=== PATIENT | female | born 1935 | race Caucasian/White ===

== ENCOUNTER 2018-08-31 00:12 | Inpatient (IN) | payer MEDICARE, OTHER ==
[2018-08-31] MEDS ORDERED: NITROGLYCERIN (SL) 0.4 MG TAB (00:39)
[2018-08-31 00:41] LABS: ADD MAN DIFF? NO
[2018-08-31] MEDS: NITROGLYCERIN (SL) 0.4 MG TAB SL ×2 (00:43→09:55)
[2018-08-31 00:45] LABS: WHITE BLOOD COUNT 18.3 10^3/ul (4.8-10.8)
[2018-08-31 00:45] LABS: BASOPHIL # 0.1 10^3/ul (0.0-0.1); BASOPHILS % 0.5 % (0.0-2.0); EOSINOPHILS # 0.1 10^3/ul (0.0-0.5); EOSINOPHILS % 0.4 % (0.0-7.0); HEMATOCRIT 31.1 % (37.0-47.0); HEMOGLOBIN 9.3 g/dl (12.0-16.0); LYMPHOCYTES # 4.1 10^3/ul (0.8-2.9); LYMPHOCYTES % 22.6 % (15.0-51.0); MEAN CORPUSCULAR HEMOGLOBIN 30.2 pg (29.0-33.0); MEAN CORPUSCULAR HGB CONC 29.9 g/dl (32.0-37.0); MEAN PLATELET VOLUME 9.9 fl (7.4-10.4); MONOCYTE # 0.8 10^3/ul (0.3-0.9); MONOCYTES % 4.3 % (0.0-11.0); NEUTROPHIL # 13.1 10^3/ul (1.6-7.5); NEUTROPHILS % 71.5 % (39.0-77.0); PLATELET COUNT 348 10^3/UL (140-415); RED BLOOD COUNT 3.08 10^6/ul (4.20-5.40); RED CELL DISTRIBUTION WIDTH 17.1 % (11.5-14.5)
[2018-08-31] MEDS: CEFTRIAXONE 1 GM/50 ML (PMX) 50 ML IVPB (00:50)
[2018-08-31 01:04] LABS: INR 1.06; PROTIME 13.9 Sec (11.9-14.9); PT RATIO 1.1
[2018-08-31 01:05] LABS: PARTIAL THROMBOPLASTIN TIME 28.9 Sec (23.0-35.0)
[2018-08-31 01:16] LABS: ALANINE AMINOTRANSFERASE 18 IU/L (13-69); ALBUMIN 3.7 g/dl (3.3-4.9); ALBUMIN/GLOBULIN RATIO 1.48; ALKALINE PHOSPHATASE 68 IU/L (42-121); ANION GAP 14 (5-13); ASPARTATE AMINO TRANSFERASE 47 IU/L (15-46); BILIRUBIN,INDIRECT 0.1 mg/dl (0-1.1); BILIRUBIN,TOTAL 0.1 mg/dl (0.2-1.3); BLOOD UREA NITROGEN 45 mg/dl (7-20); CALCIUM 8.9 mg/dl (8.4-10.2); CARBON DIOXIDE 23 mmol/L (21-31); CHLORIDE 107 mmol/L (97-110); CREATININE 1.87 mg/dl (0.44-1.00); GLUCOSE 259 mg/dl (70-220); POTASSIUM 4.4 mmol/L (3.5-5.1); SODIUM 144 mmol/L (135-144); TOTAL PROTEIN 6.2 g/dl (6.1-8.1)
[2018-08-31 01:21] LABS: AADO2 Arterial 553.8 mmHg (7.0-24.0); Allen Test ACCEPTAB; Arterial Base Excess -3.5 mmol/L (-3.0-3); Arterial Blood Gas Oxygen Sat 96.6 mmHG (95.0-100.0); Arterial COHb 0.3 % (0.0-3.0); Arterial HCO3 23.7 mmol/L (22.0-26.0); Arterial MetHb 0.3 % (0.0-1.5); Arterial pCO2 52.6 mmhg (35-45); Blood Gas IEPAP 20/8; MODE MASK - BIPAP; Site Right Radial
[2018-08-31] MEDS: AZITHROMYCIN 500MG/NS (PMX) 250 ML IV (01:57)
[2018-08-31 03:21] LABS: B-TYPE NATRIURETIC PEPTIDE 8910 PG/ML (0-450); TROPONIN-I 0.743 ng/ml (0.000-0.120)
[2018-08-31] MEDS ORDERED: ONDANSETRON 4 MG INJ IV (03:30)
[2018-08-31] MEDS ORDERED: ACETAMINOPHEN 325 MG TAB PO (03:30)
[2018-08-31] MEDS: ASPIRIN 81 MG TAB PO ×2 (03:42→09:00)
[2018-08-31] MEDS ORDERED: NACL 0.9% 3 ML SYG IV (04:30)
[2018-08-31] MEDS ORDERED: GLUCAGON 1 MG INJ IM (05:00)
[2018-08-31] MEDS ORDERED: DEXTROSE 50% 50 ML SYRINGE IV ×2 (05:00)
[2018-08-31] MEDS ORDERED: GLUCOSE GEL 15 GRAM TUBE PO ×2 (05:00)
[2018-08-31] MEDS ORDERED: GLUCOSE GEL 15 GRAM TUBE BUCCAL (05:00)
[2018-08-31 05:22] LABS: LACTIC ACID 1.2 mmol/L (0.5-2.0)
[2018-08-31 05:25] LABS: CREATINE KINASE 187 IU/L (23-200)
[2018-08-31] MEDS: FUROSEMIDE 20 MG INJ IV (06:22)
[2018-08-31] MEDS: ENOXAPARIN 80 MG/0.8 ML SYG SC (06:33)
[2018-08-31] MEDS: INSULIN ASPART [NOVOLOG] 3 ML PEN SC ×5 (06:34→20:59)
[2018-08-31 08:51] LABS: AADO2 Arterial 207.4 mmHg (7.0-24.0); Allen Test ACCEPTAB; Arterial Base Excess 0.3 mmol/L (-3.0-3); Arterial Blood Gas Oxygen Sat 97.3 mmHG (95.0-100.0); Arterial COHb 0.3 % (0.0-3.0); Arterial Fraction of Oxyhgb 96.8 % (93.0-99.0); Arterial HCO3 24.8 mmol/L (22.0-26.0); Arterial MetHb 0.2 % (0.0-1.5); Arterial pCO2 39.4 mmhg (35-45); Blood Gas IEPAP 20/8; Blood Gas PS 12; MODE MASK - BIPAP; Site Right Radial
[2018-08-31] MEDS: FUROSEMIDE 40 MG INJ IV ×2 (10:07→13:24)
[2018-08-31] MEDS ORDERED: NITROGLYCERIN (IC) 100 MCG/ML INJ (10:32)
[2018-08-31] MEDS ORDERED: VERAPAMIL 5 MG INJ (10:32)
[2018-08-31] MEDS ORDERED: MIDAZOLAM 1 MG/ML 2 ML INJ (10:32)
[2018-08-31] MEDS ORDERED: FENTAnyl 50 MCG/ML VIAL (10:32)
[2018-08-31] MEDS ORDERED: IOHEXOL 350MG/ML 50 ML BTL (10:33)
[2018-08-31] MEDS ORDERED: IODIXANOL LOCM 100 ML BTL (10:33)
[2018-08-31 10:39] LABS: CREATINE KINASE 290 IU/L (23-200)
[2018-08-31 10:52] LABS: CK INDEX 6.2
[2018-08-31] MEDS: HOLD all METFORMIN and METFORMIN CONTAINING medications for 48 hours post procedure. Chec XX (12:00)
[2018-08-31 12:07] LABS: ANION GAP 15 (5-13); BLOOD UREA NITROGEN 47 mg/dl (7-20); CALCIUM 9.1 mg/dl (8.4-10.2); CARBON DIOXIDE 22 mmol/L (21-31); CHLORIDE 109 mmol/L (97-110); CREATININE 1.82 mg/dl (0.44-1.00); GLUCOSE 170 mg/dl (70-220); POTASSIUM 4.3 mmol/L (3.5-5.1); SODIUM 146 mmol/L (135-144)
[2018-08-31 12:16] LABS: B-TYPE NATRIURETIC PEPTIDE 26300 PG/ML (0-450)
[2018-08-31] MEDS: NITROGLYCERIN 50 MG/D5W (PMX) 250 ML IV (12:35)
[2018-08-31] MEDS ORDERED: HEPARIN 25000 UNITS/250 ML 250 ML (13:18)
[2018-08-31] MEDS: ATORVASTATIN 80 MG TAB PO (13:24)
[2018-08-31] MEDS: HEPARIN 25000 UNITS/D5W 250 ML IV (14:12)
[2018-08-31] MEDS: HEPARIN 1000 UNITS/ML 10 ML INJ IV (14:13)
[2018-08-31 16:09] LABS: ADD UMIC YES; UR ASCORBIC ACID NEGATIVE (NEGATIVE); UR BILIRUBIN (Dip) NEGATIVE (NEGATIVE); UR BLOOD (Dip) 3+ mg/dL (NEGATIVE); UR CLARITY CLEAR (CLEAR); UR COLOR COLORLESS (YELLOW); UR GLUCOSE (Dip) NEGATIVE (NEGATIVE); UR KETONES (Dip) NEGATIVE (NEGATIVE); UR LEUKOCYTE ESTERASE (Dip) NEGATIVE Leu/ul (NEGATIVE); UR NITRITE (Dip) NEGATIVE (NEGATIVE); UR RBC 123 /HPF (0-5); UR SPECIFIC GRAVITY (Dip) 1.016 (1.003-1.030); UR TOTAL PROTEIN (Dip) NEGATIVE (NEGATIVE); UR UROBILINOGEN (Dip) NEGATIVE (NEGATIVE); UR WBC 4 /HPF (0-5)
[2018-08-31] MEDS ORDERED: ATROPINE 1 MG/10 ML SYRINGE (16:15)
[2018-08-31 16:36] LABS: AMPHETAMINE/METHAMPHETAMINE Negative (NEGATIVE); BARBITURATES Negative (NEGATIVE); BENZODIAZEPINES Positive (NEGATIVE); CANNABINOIDS Negative (NEGATIVE); COCAINE Negative (NEGATIVE); OPIATES Negative (NEGATIVE)
[2018-08-31] MEDS: PIPER-TAZO 2.25 GM (PMX) 50 ML IVPB ×2 (17:20→23:59)
[2018-08-31] MEDS: CEPASTAT LOZENGE MT (17:36)
[2018-08-31 19:49] LABS: PARTIAL THROMBOPLASTIN TIME > 180.0 Sec (23.0-35.0)
[2018-08-31 22:29] LABS: Allen Test ACCEPTAB; Arterial Base Excess 0 mmol/L (-3.0-3); Arterial Blood Gas Oxygen Sat 95.4 mmHG (95.0-100.0); Arterial COHb 0.3 % (0.0-3.0); Arterial Fraction of Oxyhgb 94.8 % (93.0-99.0); Arterial HCO3 23.8 mmol/L (22.0-26.0); Arterial MetHb 0.3 % (0.0-1.5); Arterial pCO2 35.2 mmhg (35-45); Blood Gas IEPAP 20/8; Blood Gas PS 12; MODE MASK - BIPAP; Site Left Radial
[2018-08-31 22:48] LABS: PARTIAL THROMBOPLASTIN TIME 68.1 Sec (23.0-35.0)
[2018-09-01] MEDS: INSULIN ASPART [NOVOLOG] 3 ML PEN SC ×6 (01:00→21:10)
[2018-09-01] MEDS: ACCU-CHEK XX (02:00)
[2018-09-01] MEDS ORDERED: VANCOMYCIN IV PER PHARMACY XX (05:30)
[2018-09-01 05:56] LABS: ADD MAN DIFF? NO
[2018-09-01] MEDS: PANTOPRAZOLE 40 MG INJ IV (06:04)
[2018-09-01] MEDS: PIPER-TAZO 2.25 GM (PMX) 50 ML IVPB ×3 (06:04→17:37)
[2018-09-01] MEDS: ONDANSETRON 4 MG INJ IV ×2 (06:26→12:30)
[2018-09-01 06:29] LABS: ALANINE AMINOTRANSFERASE 25 IU/L (13-69); ALBUMIN 3.3 g/dl (3.3-4.9); ALBUMIN/GLOBULIN RATIO 1.37; ALKALINE PHOSPHATASE 52 IU/L (42-121); ANION GAP 13 (5-13); ASPARTATE AMINO TRANSFERASE 57 IU/L (15-46); BILIRUBIN,INDIRECT 0.3 mg/dl (0-1.1); BILIRUBIN,TOTAL 0.3 mg/dl (0.2-1.3); BLOOD UREA NITROGEN 44 mg/dl (7-20); CARBON DIOXIDE 26 mmol/L (21-31); CHLORIDE 107 mmol/L (97-110); CHOL/HDL RATIO 2.5 RATIO; CHOLESTEROL 109 mg/dl (100-200); CREATININE 1.84 mg/dl (0.44-1.00); GLUCOSE 122 mg/dl (70-220); HDL CHOLESTEROL 42 mg/dl (33-92); LDL CHOLESTEROL,CALCULATED 38 mg/dl; MAGNESIUM 2.3 mg/dl (1.7-2.5); POTASSIUM 3.2 mmol/L (3.5-5.1); SODIUM 146 mmol/L (135-144); TOTAL PROTEIN 5.7 g/dl (6.1-8.1); TRIGLYCERIDES 145 mg/dl (0-149)
[2018-09-01 06:32] LABS: WHITE BLOOD COUNT 12.4 10^3/ul (4.8-10.8)
[2018-09-01 06:32] LABS: BASOPHILS % 0.2 % (0.0-2.0); HEMATOCRIT 28.1 % (37.0-47.0); HEMOGLOBIN 8.8 g/dl (12.0-16.0); LYMPHOCYTES # 1.3 10^3/ul (0.8-2.9); LYMPHOCYTES % 10.6 % (15.0-51.0); MEAN CORPUSCULAR HEMOGLOBIN 29.9 pg (29.0-33.0); MEAN CORPUSCULAR HGB CONC 31.3 g/dl (32.0-37.0); MEAN CORPUSCULAR VOLUME 95.6 fl (82.0-101.0); MONOCYTE # 0.4 10^3/ul (0.3-0.9); MONOCYTES % 3.3 % (0.0-11.0); NEUTROPHIL # 10.6 10^3/ul (1.6-7.5); NEUTROPHILS % 85.3 % (39.0-77.0); PLATELET COUNT 267 10^3/UL (140-415); RED BLOOD COUNT 2.94 10^6/ul (4.20-5.40); RED CELL DISTRIBUTION WIDTH 17.2 % (11.5-14.5)
[2018-09-01] MEDS: VANCOMYCIN HCL 1.5 GM in SOD CHLORIDE 0.9% 250 ML IVPB (06:37)
[2018-09-01 06:41] LABS: PARTIAL THROMBOPLASTIN TIME 69.6 Sec (23.0-35.0)
[2018-09-01 07:50] LABS: HEMOGLOBIN A1C 5.7 % (0-5.9)
[2018-09-01] MEDS: ASPIRIN 81 MG TAB PO (08:33)
[2018-09-01] MEDS: CEPASTAT LOZENGE MT ×2 (08:36→21:27)
[2018-09-01] MEDS: FUROSEMIDE 40 MG INJ IV (08:36)
[2018-09-01] MEDS: POTASSIUM CHLORIDE (SR) 20 MEQ TAB PO ×2 (09:33→21:08)
[2018-09-01] MEDS: ESCITALOPRAM 10 MG TAB PO (10:33)
[2018-09-01] MEDS: HOLD all METFORMIN and METFORMIN CONTAINING medications for 48 hours post procedure. Chec XX (12:00)
[2018-09-01 13:52] LABS: PARTIAL THROMBOPLASTIN TIME 48.7 Sec (23.0-35.0)
[2018-09-01] MEDS: HEPARIN 25000 UNITS/D5W 250 ML IV (14:08)
[2018-09-01] MEDS: DOCUSATE SODIUM 100 MG CAP PO ×2 (18:54→21:08)
[2018-09-01 19:41] LABS: PARTIAL THROMBOPLASTIN TIME 50.2 Sec (23.0-35.0)
[2018-09-01] MEDS: ATORVASTATIN 80 MG TAB PO (21:07)
[2018-09-01] MEDS: MIRTAZAPINE 15 MG TAB PO (21:08)
[2018-09-02] MEDS: PIPER-TAZO 2.25 GM (PMX) 50 ML IVPB ×5 (00:07→23:28)
[2018-09-02] MEDS: INSULIN ASPART [NOVOLOG] 3 ML PEN SC ×6 (01:00→21:00)
[2018-09-02] MEDS: ACCU-CHEK XX (01:19)
[2018-09-02 03:47] LABS: ADD MAN DIFF? NO
[2018-09-02 04:08] LABS: MAGNESIUM 2.4 mg/dl (1.7-2.5)
[2018-09-02 04:08] LABS: PHOSPHORUS 4.4 mg/dl (2.5-4.9)
[2018-09-02 04:09] LABS: WHITE BLOOD COUNT 10.2 10^3/ul (4.8-10.8)
[2018-09-02 04:09] LABS: ANION GAP 8 (5-13); BASOPHILS % 0.3 % (0.0-2.0); BLOOD UREA NITROGEN 48 mg/dl (7-20); CALCIUM 8.6 mg/dl (8.4-10.2); CARBON DIOXIDE 28 mmol/L (21-31); CHLORIDE 108 mmol/L (97-110); EOSINOPHILS % 0.2 % (0.0-7.0); GLUCOSE 116 mg/dl (70-220); HEMATOCRIT 26.3 % (37.0-47.0); LYMPHOCYTES # 1.4 10^3/ul (0.8-2.9); LYMPHOCYTES % 13.3 % (15.0-51.0); MEAN CORPUSCULAR HGB CONC 30.4 g/dl (32.0-37.0); MEAN CORPUSCULAR VOLUME 98.5 fl (82.0-101.0); MEAN PLATELET VOLUME 10.1 fl (7.4-10.4); MONOCYTE # 0.4 10^3/ul (0.3-0.9); MONOCYTES % 4.1 % (0.0-11.0); NEUTROPHIL # 8.4 10^3/ul (1.6-7.5); NEUTROPHILS % 81.6 % (39.0-77.0); PLATELET COUNT 248 10^3/UL (140-415); RED BLOOD COUNT 2.67 10^6/ul (4.20-5.40); RED CELL DISTRIBUTION WIDTH 16.9 % (11.5-14.5); SODIUM 144 mmol/L (135-144)
[2018-09-02 04:20] LABS: PARTIAL THROMBOPLASTIN TIME 45.7 Sec (23.0-35.0)
[2018-09-02] MEDS: HEPARIN 1000 UNITS/ML 10 ML INJ IV (04:36)
[2018-09-02] MEDS: HEPARIN 25000 UNITS/D5W 250 ML IV (04:45)
[2018-09-02] MEDS: PANTOPRAZOLE (EC) 40 MG TAB PO (05:48)
[2018-09-02] MEDS: RISEDRONATE 35 MG TAB PO ×2 (07:00→07:05)
[2018-09-02] MEDS: DOCUSATE SODIUM 100 MG CAP PO ×2 (07:45→21:06)
[2018-09-02] MEDS: ASPIRIN 81 MG TAB PO (07:45)
[2018-09-02] MEDS: ESCITALOPRAM 10 MG TAB PO (07:45)
[2018-09-02] MEDS: FUROSEMIDE 40 MG INJ IV (08:36)
[2018-09-02 11:54] LABS: PARTIAL THROMBOPLASTIN TIME 33.8 Sec (23.0-35.0)
[2018-09-02] MEDS ORDERED: LIDOCAINE 100 MG SYRINGE (13:57)
[2018-09-02] MEDS ORDERED: PHENYLephrine (100 MCG/ML) 10ML SYG (13:57)
[2018-09-02] MEDS ORDERED: EPHEDrine 25 MG/5 ML SYG (13:57)
[2018-09-02] MEDS ORDERED: PROPOFOL 0 ML (13:57)
[2018-09-02] MEDS ORDERED: PROPOFOL 20 ML (14:58)
[2018-09-02] MEDS: CEPASTAT LOZENGE MT ×2 (16:10→19:50)
[2018-09-02] MEDS: VANCOMYCIN 1 GM 250 ML IVPB (17:46)
[2018-09-02] MEDS: ATORVASTATIN 80 MG TAB PO (21:00)
[2018-09-02] MEDS: MIRTAZAPINE 15 MG TAB PO (21:01)
[2018-09-03] MEDS: INSULIN ASPART [NOVOLOG] 3 ML PEN SC ×6 (01:00→20:51)
[2018-09-03] MEDS: ACCU-CHEK XX (01:01)
[2018-09-03] MEDS: PIPER-TAZO 2.25 GM (PMX) 50 ML IVPB ×3 (05:50→18:47)
[2018-09-03] MEDS: PANTOPRAZOLE (EC) 40 MG TAB PO (05:51)
[2018-09-03 08:12] LABS: CREATININE 1.89 mg/dl (0.44-1.00)
[2018-09-03 08:12] LABS: BLOOD UREA NITROGEN 53 mg/dl (7-20)
[2018-09-03] MEDS: DOCUSATE SODIUM 100 MG CAP PO ×2 (08:34→20:34)
[2018-09-03] MEDS: ASPIRIN 81 MG TAB PO (08:34)
[2018-09-03] MEDS: ESCITALOPRAM 10 MG TAB PO (08:34)
[2018-09-03] MEDS: NITROGLYCERIN (SL) 0.4 MG TAB SL ×3 (16:52→22:02)
[2018-09-03] MEDS: LEVALBUTEROL (NEB) 1.25 MG/0.5 ML AMP HHN (20:00)
[2018-09-03] MEDS: IPRATROPIUM (NEB) 0.5 MG/2.5 ML AMP HHN (20:00)
[2018-09-03 20:12] LABS: AADO2 Arterial 108.7 mmHg (7.0-24.0); Allen Test ACCEPTAB; Arterial Base Excess -1.4 mmol/L (-3.0-3); Arterial Blood Gas Oxygen Sat 93.1 mmHG (95.0-100.0); Arterial COHb 0.3 % (0.0-3.0); Arterial Fraction of Oxyhgb 92.7 % (93.0-99.0); Arterial HCO3 24.1 mmol/L (22.0-26.0); Arterial MetHb 0.1 % (0.0-1.5); Arterial pCO2 43.4 mmhg (35-45); MODE NASAL CANNULA; Site Right Radial
[2018-09-03] MEDS: ATORVASTATIN 80 MG TAB PO (20:33)
[2018-09-03] MEDS: FUROSEMIDE 40 MG INJ IV (20:33)
[2018-09-03] MEDS: MIRTAZAPINE 15 MG TAB PO (20:33)
[2018-09-03] MEDS: morphine 2 MG INJ IV (22:03)
[2018-09-04] MEDS: PIPER-TAZO 2.25 GM (PMX) 50 ML IVPB ×4 (00:19→18:07)
[2018-09-04] MEDS: NITROGLYCERIN 50 MG/D5W (PMX) 250 ML IV (00:19)
[2018-09-04] MEDS: INSULIN ASPART [NOVOLOG] 3 ML PEN SC ×6 (01:00→21:00)
[2018-09-04] MEDS: ACCU-CHEK XX (02:00)
[2018-09-04 05:23] LABS: ADD MAN DIFF? NO
[2018-09-04 05:32] LABS: WHITE BLOOD COUNT 9.1 10^3/ul (4.8-10.8)
[2018-09-04 05:32] LABS: BASOPHILS % 0.2 % (0.0-2.0); EOSINOPHILS % 0.1 % (0.0-7.0); HEMATOCRIT 26.2 % (37.0-47.0); LYMPHOCYTES % 11.4 % (15.0-51.0); MEAN CORPUSCULAR HEMOGLOBIN 30.3 pg (29.0-33.0); MEAN CORPUSCULAR HGB CONC 30.5 g/dl (32.0-37.0); MEAN CORPUSCULAR VOLUME 99.2 fl (82.0-101.0); MONOCYTE # 0.4 10^3/ul (0.3-0.9); MONOCYTES % 4.3 % (0.0-11.0); NEUTROPHIL # 7.6 10^3/ul (1.6-7.5); NEUTROPHILS % 83.6 % (39.0-77.0); PLATELET COUNT 260 10^3/UL (140-415); RED BLOOD COUNT 2.64 10^6/ul (4.20-5.40); RED CELL DISTRIBUTION WIDTH 16.5 % (11.5-14.5)
[2018-09-04 05:51] LABS: ALANINE AMINOTRANSFERASE 26 IU/L (13-69); ALBUMIN/GLOBULIN RATIO 1.15; ALKALINE PHOSPHATASE 74 IU/L (42-121); ANION GAP 7 (5-13); ASPARTATE AMINO TRANSFERASE 56 IU/L (15-46); BILIRUBIN,INDIRECT 0.2 mg/dl (0-1.1); BILIRUBIN,TOTAL 0.2 mg/dl (0.2-1.3); BLOOD UREA NITROGEN 55 mg/dl (7-20); CALCIUM 8.7 mg/dl (8.4-10.2); CARBON DIOXIDE 27 mmol/L (21-31); CHLORIDE 113 mmol/L (97-110); CREATININE 2.28 mg/dl (0.44-1.00); GLUCOSE 117 mg/dl (70-220); POTASSIUM 4.1 mmol/L (3.5-5.1); SODIUM 147 mmol/L (135-144); TOTAL PROTEIN 5.6 g/dl (6.1-8.1)
[2018-09-04] MEDS: PANTOPRAZOLE (EC) 40 MG TAB PO (05:54)
[2018-09-04 06:01] LABS: VANCOMYCIN,TROUGH 16.2 ug/ml (10.0-20.0)
[2018-09-04] MEDS: VANCOMYCIN 1 GM 250 ML IVPB (06:38)
[2018-09-04] MEDS: FUROSEMIDE 40 MG INJ IV ×2 (09:04→18:07)
[2018-09-04] MEDS: ESCITALOPRAM 10 MG TAB PO (09:04)
[2018-09-04] MEDS: ASPIRIN 81 MG TAB PO (09:04)
[2018-09-04] MEDS: DOCUSATE SODIUM 100 MG CAP PO ×2 (09:05→21:33)
[2018-09-04] MEDS: NITROGLYCERIN (SL) 0.4 MG TAB SL ×2 (20:30→20:40)
[2018-09-04] MEDS: ATORVASTATIN 80 MG TAB PO (21:33)
[2018-09-04] MEDS: MIRTAZAPINE 15 MG TAB PO (21:33)
[2018-09-05] MEDS: PIPER-TAZO 2.25 GM (PMX) 50 ML IVPB ×4 (00:27→17:07)
[2018-09-05] MEDS: INSULIN ASPART [NOVOLOG] 3 ML PEN SC ×6 (00:28→21:00)
[2018-09-05] MEDS: ACCU-CHEK XX (02:00)
[2018-09-05] MEDS: FUROSEMIDE 40 MG INJ IV (05:19)
[2018-09-05] MEDS: PANTOPRAZOLE (EC) 40 MG TAB PO (05:19)
[2018-09-05] MEDS: ASPIRIN 81 MG TAB PO (08:31)
[2018-09-05] MEDS: ESCITALOPRAM 10 MG TAB PO (08:31)
[2018-09-05] MEDS: DOCUSATE SODIUM 100 MG CAP PO ×2 (08:31→21:24)
[2018-09-05 08:59] LABS: ANION GAP 10 (5-13); BLOOD UREA NITROGEN 61 mg/dl (7-20); CALCIUM 8.6 mg/dl (8.4-10.2); CARBON DIOXIDE 27 mmol/L (21-31); CHLORIDE 109 mmol/L (97-110); CREATININE 2.48 mg/dl (0.44-1.00); GLUCOSE 96 mg/dl (70-220); SODIUM 146 mmol/L (135-144)
[2018-09-05] MEDS: CLOPIDOGREL 75 MG TAB PO (09:16)
[2018-09-05] MEDS: ISOSORBIDE MONONITRATE(SR)30 MG TAB PO (09:17)
[2018-09-05] MEDS: MIRTAZAPINE 15 MG TAB PO (21:24)
[2018-09-05] MEDS: ATORVASTATIN 80 MG TAB PO (21:24)
[2018-09-06] MEDS: PIPER-TAZO 2.25 GM (PMX) 50 ML IVPB ×4 (00:26→21:20)
[2018-09-06] MEDS: ACCU-CHEK XX (02:00)
[2018-09-06 05:10] LABS: ADD MAN DIFF? NO
[2018-09-06 05:13] LABS: BASOPHIL # 0.1 10^3/ul (0.0-0.1); BASOPHILS % 0.5 % (0.0-2.0); EOSINOPHILS # 0.3 10^3/ul (0.0-0.5); HEMATOCRIT 25.6 % (37.0-47.0); HEMOGLOBIN 7.9 g/dl (12.0-16.0); LYMPHOCYTES # 1.4 10^3/ul (0.8-2.9); LYMPHOCYTES % 14.1 % (15.0-51.0); MEAN CORPUSCULAR HEMOGLOBIN 29.4 pg (29.0-33.0); MEAN CORPUSCULAR HGB CONC 30.9 g/dl (32.0-37.0); MEAN CORPUSCULAR VOLUME 95.2 fl (82.0-101.0); MEAN PLATELET VOLUME 10.1 fl (7.4-10.4); MONOCYTE # 0.6 10^3/ul (0.3-0.9); MONOCYTES % 6.1 % (0.0-11.0); NEUTROPHIL # 7.3 10^3/ul (1.6-7.5); NEUTROPHILS % 75.7 % (39.0-77.0); PLATELET COUNT 294 10^3/UL (140-415); RED BLOOD COUNT 2.69 10^6/ul (4.20-5.40); RED CELL DISTRIBUTION WIDTH 16.3 % (11.5-14.5)
[2018-09-06 05:13] LABS: WHITE BLOOD COUNT 9.7 10^3/ul (4.8-10.8)
[2018-09-06] MEDS: PANTOPRAZOLE (EC) 40 MG TAB PO (05:30)
[2018-09-06 05:37] LABS: ANION GAP 8 (5-13); BLOOD UREA NITROGEN 60 mg/dl (7-20); CALCIUM 8.7 mg/dl (8.4-10.2); CARBON DIOXIDE 27 mmol/L (21-31); CHLORIDE 109 mmol/L (97-110); CREATININE 2.31 mg/dl (0.44-1.00); GLUCOSE 103 mg/dl (70-220); MAGNESIUM 2.6 mg/dl (1.7-2.5); PHOSPHORUS 3.6 mg/dl (2.5-4.9); POTASSIUM 3.6 mmol/L (3.5-5.1); SODIUM 144 mmol/L (135-144)
[2018-09-06] MEDS: VANCOMYCIN 1 GM 250 ML IVPB (06:05)
[2018-09-06] MEDS: INSULIN ASPART [NOVOLOG] 3 ML PEN SC ×4 (07:35→21:00)
[2018-09-06] MEDS: NITROGLYCERIN (SL) 0.4 MG TAB SL (08:02)
[2018-09-06] MEDS: ONDANSETRON 4 MG INJ IV (08:02)
[2018-09-06] MEDS: ASPIRIN 81 MG TAB PO (08:12)
[2018-09-06] MEDS: ISOSORBIDE MONONITRATE(SR)30 MG TAB PO (08:13)
[2018-09-06] MEDS: DOCUSATE SODIUM 100 MG CAP PO ×2 (08:13→21:20)
[2018-09-06] MEDS: ESCITALOPRAM 10 MG TAB PO (08:13)
[2018-09-06] MEDS: FUROSEMIDE 40 MG INJ IV (08:18)
[2018-09-06] MEDS: CLOPIDOGREL 75 MG TAB PO (08:18)
[2018-09-06] MEDS: CEPASTAT LOZENGE MT (13:05)
[2018-09-06] MEDS: RANOLAZINE (SR) 500 MG TAB PO ×2 (16:13→21:20)
[2018-09-06] MEDS: MIRTAZAPINE 15 MG TAB PO (21:20)
[2018-09-06] MEDS: ATORVASTATIN 80 MG TAB PO (21:20)
[2018-09-07] MEDS: ACCU-CHEK XX (02:00)
[2018-09-07] MEDS: NITROGLYCERIN 50 MG/D5W (PMX) 250 ML IV (03:42)
[2018-09-07 05:02] LABS: ADD MAN DIFF? NO
[2018-09-07 05:13] LABS: WHITE BLOOD COUNT 14.3 10^3/ul (4.8-10.8)
[2018-09-07 05:13] LABS: BASOPHIL # 0.1 10^3/ul (0.0-0.1); BASOPHILS % 0.4 % (0.0-2.0); EOSINOPHILS # 0.3 10^3/ul (0.0-0.5); EOSINOPHILS % 2.2 % (0.0-7.0); HEMOGLOBIN 8.8 g/dl (12.0-16.0); LYMPHOCYTES # 1.5 10^3/ul (0.8-2.9); LYMPHOCYTES % 10.6 % (15.0-51.0); MEAN CORPUSCULAR HEMOGLOBIN 29.3 pg (29.0-33.0); MEAN CORPUSCULAR HGB CONC 30.3 g/dl (32.0-37.0); MEAN CORPUSCULAR VOLUME 96.7 fl (82.0-101.0); MEAN PLATELET VOLUME 9.9 fl (7.4-10.4); MONOCYTE # 0.5 10^3/ul (0.3-0.9); MONOCYTES % 3.7 % (0.0-11.0); NEUTROPHIL # 11.8 10^3/ul (1.6-7.5); NEUTROPHILS % 82.5 % (39.0-77.0); PLATELET COUNT 337 10^3/UL (140-415); RED CELL DISTRIBUTION WIDTH 16.6 % (11.5-14.5)
[2018-09-07] MEDS: morphine 2 MG INJ IV (05:18)
[2018-09-07 05:19] LABS: AADO2 Arterial 76.9 mmHg (7.0-24.0); Arterial Base Excess 0.6 mmol/L (-3.0-3); Arterial Blood Gas Oxygen Sat 94.8 mmHG (95.0-100.0); Arterial COHb 0.3 % (0.0-3.0); Arterial Fraction of Oxyhgb 94.4 % (93.0-99.0); Arterial HCO3 25.8 mmol/L (22.0-26.0); Arterial MetHb 0.1 % (0.0-1.5); Arterial pCO2 43.9 mmhg (35-45); MODE NASAL CANNULA; Site Right Radial
[2018-09-07] MEDS: PIPER-TAZO 2.25 GM (PMX) 50 ML IVPB ×3 (05:27→21:40)
[2018-09-07] MEDS: PANTOPRAZOLE (EC) 40 MG TAB PO (05:27)
[2018-09-07 05:28] LABS: ANION GAP 9 (5-13); BLOOD UREA NITROGEN 56 mg/dl (7-20); CALCIUM 8.7 mg/dl (8.4-10.2); CARBON DIOXIDE 26 mmol/L (21-31); CHLORIDE 110 mmol/L (97-110); CREATININE 2.01 mg/dl (0.44-1.00); GLUCOSE 123 mg/dl (70-220); POTASSIUM 4.2 mmol/L (3.5-5.1); SODIUM 145 mmol/L (135-144)
[2018-09-07 05:34] LABS: MAGNESIUM 2.7 mg/dl (1.7-2.5)
[2018-09-07 05:34] LABS: PHOSPHORUS 4.5 mg/dl (2.5-4.9)
[2018-09-07 07:33] LABS: CREATINE KINASE 33 IU/L (23-200)
[2018-09-07] MEDS: INSULIN ASPART [NOVOLOG] 3 ML PEN SC ×4 (07:35→20:21)
[2018-09-07 07:43] LABS: CK INDEX 1.7; CK-MB 0.55 ng/ml (0.0-2.4)
[2018-09-07] MEDS: FUROSEMIDE 40 MG INJ IV (08:54)
[2018-09-07] MEDS: ASPIRIN 81 MG TAB PO (08:54)
[2018-09-07] MEDS: ONDANSETRON 4 MG INJ IV (08:54)
[2018-09-07] MEDS: RANOLAZINE (SR) 500 MG TAB PO ×2 (09:00→20:21)
[2018-09-07] MEDS: ESCITALOPRAM 10 MG TAB PO (09:00)
[2018-09-07] MEDS: DOCUSATE SODIUM 100 MG CAP PO ×2 (09:00→20:21)
[2018-09-07] MEDS: ISOSORBIDE MONONITRATE(SR)30 MG TAB PO (09:00)
[2018-09-07] MEDS: CLOPIDOGREL 75 MG TAB PO (09:00)
[2018-09-07] MEDS ORDERED: HEPARIN 25000 UNITS/250 ML 250 ML (09:16)
[2018-09-07 09:30] LABS: ADD MAN DIFF? NO
[2018-09-07] MEDS ORDERED: HEPARIN 1000 UNITS/ML 10 ML INJ IV (09:30)
[2018-09-07 09:31] LABS: WHITE BLOOD COUNT 15.1 10^3/ul (4.8-10.8)
[2018-09-07 09:31] LABS: BASOPHIL # 0.1 10^3/ul (0.0-0.1); BASOPHILS % 0.4 % (0.0-2.0); EOSINOPHILS # 0.1 10^3/ul (0.0-0.5); EOSINOPHILS % 0.6 % (0.0-7.0); HEMATOCRIT 28.5 % (37.0-47.0); HEMOGLOBIN 8.7 g/dl (12.0-16.0); LYMPHOCYTES # 1.4 10^3/ul (0.8-2.9); LYMPHOCYTES % 9.5 % (15.0-51.0); MEAN CORPUSCULAR HEMOGLOBIN 30.2 pg (29.0-33.0); MEAN CORPUSCULAR HGB CONC 30.5 g/dl (32.0-37.0); MEAN PLATELET VOLUME 9.8 fl (7.4-10.4); MONOCYTE # 0.4 10^3/ul (0.3-0.9); MONOCYTES % 2.9 % (0.0-11.0); PLATELET COUNT 314 10^3/UL (140-415); RED BLOOD COUNT 2.88 10^6/ul (4.20-5.40); RED CELL DISTRIBUTION WIDTH 16.3 % (11.5-14.5)
[2018-09-07] MEDS: HEPARIN 1000 UNITS/ML 10 ML INJ IV (09:34)
[2018-09-07] MEDS: HEPARIN 25000 UNITS/250 ML 250 ML IV (09:37)
[2018-09-07 09:52] LABS: INR 1.18; PROTIME 15.1 Sec (11.9-14.9); PT RATIO 1.2
[2018-09-07 09:53] LABS: PARTIAL THROMBOPLASTIN TIME 33.2 Sec (23.0-35.0)
[2018-09-07] MEDS ORDERED: LIDOCAINE 1% (MDV) 20 ML INJ (13:41)
[2018-09-07] MEDS ORDERED: VERAPAMIL 5 MG INJ (13:41)
[2018-09-07] MEDS ORDERED: NITROGLYCERIN (IC) 100 MCG/ML INJ (13:41)
[2018-09-07] MEDS ORDERED: MIDAZOLAM 1 MG/ML 2 ML INJ (14:08)
[2018-09-07] MEDS ORDERED: BIVALIRUDIN 250MG /NS 50 ML 50 ML IVPB (14:24)
[2018-09-07] MEDS ORDERED: SOD CHLORIDE 0.9% 1,000 ML (14:27)
[2018-09-07] MEDS ORDERED: NORepinephrine 8MG/250 ML (PMX 250 ML (14:29)
[2018-09-07] MEDS ORDERED: CLOPIDOGREL 300 MG TAB (14:49)
[2018-09-07] MEDS ORDERED: FUROSEMIDE 40 MG INJ (14:51)
[2018-09-07] MEDS: SOD CHLORIDE 0.9% 1,000 ML IV (15:43)
[2018-09-07] MEDS ORDERED: ATROPINE 1 MG/10 ML SYRINGE (17:18)
[2018-09-07] MEDS: ATORVASTATIN 80 MG TAB PO (20:20)
[2018-09-07] MEDS: MIRTAZAPINE 15 MG TAB PO (20:20)
[2018-09-08] MEDS: morphine 2 MG INJ IV ×3 (01:10→19:53)
[2018-09-08] MEDS: ACCU-CHEK XX (01:27)
[2018-09-08] MEDS: PANTOPRAZOLE (EC) 40 MG TAB PO (05:20)
[2018-09-08] MEDS: PIPER-TAZO 2.25 GM (PMX) 50 ML IVPB ×3 (05:20→21:56)
[2018-09-08 05:42] LABS: AADO2 Arterial 215.4 mmHg (7.0-24.0); Allen Test ACCEPTAB; Arterial Base Excess -3.1 mmol/L (-3.0-3); Arterial Blood Gas Oxygen Sat 96.5 mmHG (95.0-100.0); Arterial COHb 0.3 % (0.0-3.0); Arterial Fraction of Oxyhgb 95.9 % (93.0-99.0); Arterial HCO3 21.6 mmol/L (22.0-26.0); Arterial MetHb 0.3 % (0.0-1.5); Arterial pCO2 37.4 mmhg (35-45); Blood Gas IEPAP 20/8; Blood Gas PS 12; MODE MASK - BIPAP; Site Right Radial
[2018-09-08 05:52] LABS: ADD MAN DIFF? NO
[2018-09-08 06:01] LABS: BASOPHIL # 0.1 10^3/ul (0.0-0.1); BASOPHILS % 0.5 % (0.0-2.0); EOSINOPHILS # 0.1 10^3/ul (0.0-0.5); EOSINOPHILS % 0.6 % (0.0-7.0); HEMATOCRIT 25.3 % (37.0-47.0); HEMOGLOBIN 7.8 g/dl (12.0-16.0); LYMPHOCYTES # 1.4 10^3/ul (0.8-2.9); MEAN CORPUSCULAR HEMOGLOBIN 30.2 pg (29.0-33.0); MEAN CORPUSCULAR HGB CONC 30.8 g/dl (32.0-37.0); MEAN CORPUSCULAR VOLUME 98.1 fl (82.0-101.0); MONOCYTE # 0.6 10^3/ul (0.3-0.9); MONOCYTES % 3.9 % (0.0-11.0); NEUTROPHILS % 84.4 % (39.0-77.0); PLATELET COUNT 320 10^3/UL (140-415); RED BLOOD COUNT 2.58 10^6/ul (4.20-5.40); RED CELL DISTRIBUTION WIDTH 16.6 % (11.5-14.5)
[2018-09-08 06:01] LABS: WHITE BLOOD COUNT 14.2 10^3/ul (4.8-10.8)
[2018-09-08] MEDS: VANCOMYCIN 1 GM 250 ML IVPB (06:05)
[2018-09-08 06:10] LABS: ALANINE AMINOTRANSFERASE 22 IU/L (13-69); ALBUMIN 3.1 g/dl (3.3-4.9); ALBUMIN/GLOBULIN RATIO 1.19; ALKALINE PHOSPHATASE 61 IU/L (42-121); ANION GAP 15 (5-13); ASPARTATE AMINO TRANSFERASE 25 IU/L (15-46); BILIRUBIN,INDIRECT 0.2 mg/dl (0-1.1); BILIRUBIN,TOTAL 0.2 mg/dl (0.2-1.3); BLOOD UREA NITROGEN 50 mg/dl (7-20); CALCIUM 8.2 mg/dl (8.4-10.2); CARBON DIOXIDE 21 mmol/L (21-31); CHLORIDE 110 mmol/L (97-110); CREATININE 1.93 mg/dl (0.44-1.00); GLUCOSE 92 mg/dl (70-220); POTASSIUM 3.8 mmol/L (3.5-5.1); SODIUM 146 mmol/L (135-144); TOTAL PROTEIN 5.7 g/dl (6.1-8.1)
[2018-09-08 06:14] LABS: VANCOMYCIN,TROUGH 15.8 ug/ml (10.0-20.0)
[2018-09-08 06:16] LABS: B-TYPE NATRIURETIC PEPTIDE 29400 PG/ML (0-450)
[2018-09-08 06:24] LABS: CREATINE KINASE 34 IU/L (23-200)
[2018-09-08 06:25] LABS: LACTIC ACID 0.9 mmol/L (0.5-2.0)
[2018-09-08 06:36] LABS: CK INDEX 5.1; CK-MB 1.72 ng/ml (0.0-2.4)
[2018-09-08] MEDS: NITROGLYCERIN (SL) 0.4 MG TAB SL ×2 (06:43→20:01)
[2018-09-08 06:49] LABS: MAGNESIUM 2.4 mg/dl (1.7-2.5)
[2018-09-08 06:49] LABS: PHOSPHORUS 4.7 mg/dl (2.5-4.9)
[2018-09-08] MEDS: INSULIN ASPART [NOVOLOG] 3 ML PEN SC ×4 (07:35→21:00)
[2018-09-08] MEDS: ISOSORBIDE MONONITRATE(SR)30 MG TAB PO (08:41)
[2018-09-08] MEDS: ASPIRIN 81 MG TAB PO (08:41)
[2018-09-08] MEDS: FUROSEMIDE 40 MG INJ IV ×2 (08:41→22:04)
[2018-09-08] MEDS: ESCITALOPRAM 10 MG TAB PO (08:42)
[2018-09-08] MEDS: RANOLAZINE (SR) 500 MG TAB PO ×2 (08:42→21:54)
[2018-09-08] MEDS: CLOPIDOGREL 75 MG TAB PO (08:42)
[2018-09-08] MEDS: DOCUSATE SODIUM 100 MG CAP PO ×2 (08:42→21:54)
[2018-09-08] MEDS: MIRTAZAPINE 15 MG TAB PO (21:53)
[2018-09-08] MEDS: ATORVASTATIN 80 MG TAB PO (21:53)
[2018-09-09] MEDS: ACCU-CHEK XX (01:30)
[2018-09-09] MEDS: NITROGLYCERIN (SL) 0.4 MG TAB SL ×2 (04:23→04:29)
[2018-09-09] MEDS: morphine 2 MG INJ IV (04:24)
[2018-09-09] MEDS: NITROGLYCERIN 50 MG/D5W (PMX) 250 ML IV ×2 (04:28→19:44)
[2018-09-09 04:39] LABS: ADD MAN DIFF? NO
[2018-09-09 04:43] LABS: WHITE BLOOD COUNT 19.2 10^3/ul (4.8-10.8)
[2018-09-09 04:43] LABS: BASOPHIL # 0.1 10^3/ul (0.0-0.1); BASOPHILS % 0.6 % (0.0-2.0); EOSINOPHILS # 0.3 10^3/ul (0.0-0.5); EOSINOPHILS % 1.4 % (0.0-7.0); HEMATOCRIT 25.8 % (37.0-47.0); HEMOGLOBIN 7.9 g/dl (12.0-16.0); LYMPHOCYTES # 1.9 10^3/ul (0.8-2.9); LYMPHOCYTES % 9.9 % (15.0-51.0); MEAN CORPUSCULAR HEMOGLOBIN 29.7 pg (29.0-33.0); MEAN CORPUSCULAR HGB CONC 30.6 g/dl (32.0-37.0); MEAN PLATELET VOLUME 10.3 fl (7.4-10.4); MONOCYTE # 0.6 10^3/ul (0.3-0.9); MONOCYTES % 3.3 % (0.0-11.0); NEUTROPHIL # 16.1 10^3/ul (1.6-7.5); NEUTROPHILS % 83.9 % (39.0-77.0); NUCLEATED RED BLOOD CELLS% 0.2 /100WBC (0.0-0.0); PLATELET COUNT 364 10^3/UL (140-415); RED BLOOD COUNT 2.66 10^6/ul (4.20-5.40); RED CELL DISTRIBUTION WIDTH 17.2 % (11.5-14.5)
[2018-09-09 04:56] LABS: RETICULOCYTE COUNT # 0.091 X10^6 (0.020-0.110); RETICULOCYTE COUNT % 3.5 % (0.5-1.5)
[2018-09-09 04:56] LABS: RETICULOCYTE RBC 2.61
[2018-09-09 05:00] LABS: IRON 39 ug/dl (35-150)
[2018-09-09] MEDS: LIDOCAINE 1% (MDV) 20 ML INJ SC (05:00)
[2018-09-09 05:03] LABS: MAGNESIUM 2.4 mg/dl (1.7-2.5)
[2018-09-09 05:09] LABS: % IRON SATURATION 14 % SAT (22-52); TOTAL IRON BINDING CAPACITY 270 ug/dl (241-421)
[2018-09-09 05:20] LABS: ANION GAP 15 (5-13); BLOOD UREA NITROGEN 48 mg/dl (7-20); CALCIUM 8.3 mg/dl (8.4-10.2); CARBON DIOXIDE 23 mmol/L (21-31); CHLORIDE 109 mmol/L (97-110); CREATININE 1.94 mg/dl (0.44-1.00); GLUCOSE 169 mg/dl (70-220); POTASSIUM 3.8 mmol/L (3.5-5.1); SODIUM 147 mmol/L (135-144)
[2018-09-09] MEDS: PIPER-TAZO 2.25 GM (PMX) 50 ML IVPB ×3 (05:33→22:48)
[2018-09-09] MEDS: PANTOPRAZOLE (EC) 40 MG TAB PO (05:34)
[2018-09-09 06:24] LABS: CK-MB 1.02 ng/ml (0.0-2.4)
[2018-09-09] MEDS: RISEDRONATE 35 MG TAB PO (07:05)
[2018-09-09] MEDS: INSULIN ASPART [NOVOLOG] 3 ML PEN SC ×4 (08:28→22:49)
[2018-09-09] MEDS: RANOLAZINE (SR) 500 MG TAB PO ×2 (09:01→22:32)
[2018-09-09] MEDS: DOCUSATE SODIUM 100 MG CAP PO ×2 (09:01→22:32)
[2018-09-09] MEDS: ISOSORBIDE MONONITRATE(SR)30 MG TAB PO (09:02)
[2018-09-09] MEDS: ESCITALOPRAM 10 MG TAB PO (09:02)
[2018-09-09] MEDS: ASPIRIN 81 MG TAB PO (09:02)
[2018-09-09] MEDS: CLOPIDOGREL 75 MG TAB PO (09:02)
[2018-09-09] MEDS: FUROSEMIDE 40 MG INJ IV (09:02)
[2018-09-09] MEDS: POLYETHYLENE GLYCOL 17 GM PACKET PO (13:44)
[2018-09-09] MEDS ORDERED: DIPHENHYDRAMINE 50 MG CAP PO (15:00)
[2018-09-09] MEDS ORDERED: DIAZEPAM 5 MG TAB PO (15:00)
[2018-09-09] MEDS: SOD CHLORIDE 0.9% 1,000 ML IV ×2 (15:13→22:33)
[2018-09-09] MEDS ORDERED: BISACODYL 10 MG SUPP PR (19:00)
[2018-09-09] MEDS: MIRTAZAPINE 15 MG TAB PO (22:32)
[2018-09-09] MEDS: ATORVASTATIN 80 MG TAB PO (22:36)
[2018-09-10] MEDS: ACCU-CHEK XX (01:42)
[2018-09-10] MEDS: morphine 2 MG INJ IV ×2 (02:39→20:29)
[2018-09-10] MEDS: DIPHENHYDRAMINE 50 MG INJ IV ×2 (02:41→21:53)
[2018-09-10] MEDS: INSULIN ASPART [NOVOLOG] 3 ML PEN SC ×5 (05:00→20:37)
[2018-09-10 05:11] LABS: ADD MAN DIFF? NO
[2018-09-10 05:20] LABS: ABNORMAL IP MESSAGE 1; BASOPHIL # 0.1 10^3/ul (0.0-0.1); BASOPHILS % 0.3 % (0.0-2.0); EOSINOPHILS # 0.3 10^3/ul (0.0-0.5); EOSINOPHILS % 1.4 % (0.0-7.0); HEMATOCRIT 22.9 % (37.0-47.0); LYMPHOCYTES # 1.2 10^3/ul (0.8-2.9); LYMPHOCYTES % 5.7 % (15.0-51.0); MEAN CORPUSCULAR HEMOGLOBIN 29.6 pg (29.0-33.0); MEAN CORPUSCULAR HGB CONC 30.1 g/dl (32.0-37.0); MEAN CORPUSCULAR VOLUME 98.3 fl (82.0-101.0); MEAN PLATELET VOLUME 9.8 fl (7.4-10.4); MONOCYTE # 0.7 10^3/ul (0.3-0.9); MONOCYTES % 3.1 % (0.0-11.0); NEUTROPHIL # 18.8 10^3/ul (1.6-7.5); NEUTROPHILS % 88.4 % (39.0-77.0); PLATELET COUNT 322 10^3/UL (140-415); RED BLOOD COUNT 2.33 10^6/ul (4.20-5.40); RED CELL DISTRIBUTION WIDTH 17.2 % (11.5-14.5)
[2018-09-10 05:20] LABS: WHITE BLOOD COUNT 21.2 10^3/ul (4.8-10.8)
[2018-09-10 05:38] LABS: INR 1.48; PT RATIO 1.4
[2018-09-10 05:39] LABS: PARTIAL THROMBOPLASTIN TIME 41.4 Sec (23.0-35.0)
[2018-09-10] MEDS: PIPER-TAZO 2.25 GM (PMX) 50 ML IVPB ×3 (05:41→21:53)
[2018-09-10] MEDS: PANTOPRAZOLE (EC) 40 MG TAB PO (05:43)
[2018-09-10 05:48] LABS: POSITIVE DIFF @See below
[2018-09-10 05:51] LABS: ANION GAP 7 (5-13); BLOOD UREA NITROGEN 48 mg/dl (7-20); CALCIUM 8.1 mg/dl (8.4-10.2); CARBON DIOXIDE 28 mmol/L (21-31); CHLORIDE 109 mmol/L (97-110); CREATININE 1.76 mg/dl (0.44-1.00); GLUCOSE 145 mg/dl (70-220); POTASSIUM 3.4 mmol/L (3.5-5.1); SODIUM 144 mmol/L (135-144)
[2018-09-10 06:02] LABS: HEMOGLOBIN 6.9 g/dl (12.0-16.0)
[2018-09-10] MEDS: VANCOMYCIN 1 GM 250 ML IVPB (07:03)
[2018-09-10 08:48] LABS: IMMEDIATE SPIN CROSSMATCH 1 1
[2018-09-10] MEDS: CLOPIDOGREL 75 MG TAB PO (09:33)
[2018-09-10] MEDS: ASPIRIN 81 MG TAB PO (09:33)
[2018-09-10] MEDS: FUROSEMIDE 40 MG INJ IV (09:33)
[2018-09-10] MEDS: ESCITALOPRAM 10 MG TAB PO (09:33)
[2018-09-10] MEDS: DOCUSATE SODIUM 100 MG CAP PO ×2 (09:37→20:28)
[2018-09-10] MEDS: RANOLAZINE (SR) 500 MG TAB PO ×2 (09:37→20:28)
[2018-09-10] MEDS: POTASSIUM CHLORIDE (SR) 20 MEQ TAB PO ×2 (11:36→20:28)
[2018-09-10] MEDS: NITROGLYCERIN (SL) 0.4 MG TAB SL ×3 (15:59→16:15)
[2018-09-10] MEDS: SOD CHLORIDE 0.9% 1,000 ML IV (17:00)
[2018-09-10] MEDS: NITROGLYCERIN 50 MG/D5W (PMX) 250 ML IV (17:08)
[2018-09-10] MEDS: DIPHENHYDRAMINE 25 MG CAP PO (19:00)
[2018-09-10] MEDS: ALBUTEROL/IPRATROPIUM (NEB) 3 ML AMP HHN (20:04)
[2018-09-10] MEDS: ATORVASTATIN 80 MG TAB PO (20:28)
[2018-09-10] MEDS: MIRTAZAPINE 15 MG TAB PO (20:29)
[2018-09-10] MEDS: FAMOTIDINE 20 MG INJ IV (21:53)
[2018-09-10] MEDS: DEXAMETHASONE 10 MG/ML 1 ML INJ IV (21:53)
[2018-09-11] MEDS: INSULIN ASPART [NOVOLOG] 3 ML PEN SC ×6 (01:38→20:08)
[2018-09-11] MEDS: ACCU-CHEK XX (02:00)
[2018-09-11] MEDS: ALBUTEROL/IPRATROPIUM (NEB) 3 ML AMP HHN ×3 (02:09→12:01)
[2018-09-11] MEDS: FUROSEMIDE 40 MG INJ IV ×3 (02:20→11:37)
[2018-09-11] MEDS: morphine 2 MG INJ IV ×4 (02:20→23:58)
[2018-09-11 02:25] LABS: AADO2 Arterial 96.5 mmHg (7.0-24.0); Allen Test ACCEPTAB; Arterial Base Excess -2.1 mmol/L (-3.0-3); Arterial Blood Gas Oxygen Sat 95.1 mmHG (95.0-100.0); Arterial COHb 0.3 % (0.0-3.0); Arterial Fraction of Oxyhgb 94.5 % (93.0-99.0); Arterial HCO3 23.6 mmol/L (22.0-26.0); Arterial MetHb 0.3 % (0.0-1.5); Arterial pCO2 44.6 mmhg (35-45); MODE NASAL CANNULA; Site Right Radial
[2018-09-11 03:11] LABS: ADD MAN DIFF? NO
[2018-09-11 03:13] LABS: ABNORMAL IP MESSAGE 1; BASOPHIL # 0.1 10^3/ul (0.0-0.1); BASOPHILS % 0.3 % (0.0-2.0); EOSINOPHILS # 0.1 10^3/ul (0.0-0.5); EOSINOPHILS % 0.5 % (0.0-7.0); LYMPHOCYTES % 4.2 % (15.0-51.0); MEAN CORPUSCULAR HEMOGLOBIN 30.2 pg (29.0-33.0); MEAN CORPUSCULAR VOLUME 97.3 fl (82.0-101.0); MEAN PLATELET VOLUME 9.8 fl (7.4-10.4); MONOCYTE # 0.2 10^3/ul (0.3-0.9); MONOCYTES % 0.9 % (0.0-11.0); NEUTROPHIL # 22.6 10^3/ul (1.6-7.5); NEUTROPHILS % 92.7 % (39.0-77.0); NUCLEATED RED BLOOD CELLS% 0.1 /100WBC (0.0-0.0); PLATELET COUNT 350 10^3/UL (140-415); RED BLOOD COUNT 2.98 10^6/ul (4.20-5.40); RED CELL DISTRIBUTION WIDTH 17.2 % (11.5-14.5)
[2018-09-11 03:13] LABS: WHITE BLOOD COUNT 24.4 10^3/ul (4.8-10.8)
[2018-09-11 03:14] LABS: POSITIVE DIFF @See below
[2018-09-11 03:27] LABS: ALANINE AMINOTRANSFERASE 25 IU/L (13-69); ALBUMIN 3.1 g/dl (3.3-4.9); ALKALINE PHOSPHATASE 69 IU/L (42-121); ANION GAP 12 (5-13); ASPARTATE AMINO TRANSFERASE 24 IU/L (15-46); BILIRUBIN,INDIRECT 0.6 mg/dl (0-1.1); BILIRUBIN,TOTAL 0.6 mg/dl (0.2-1.3); BLOOD UREA NITROGEN 44 mg/dl (7-20); CALCIUM 8.2 mg/dl (8.4-10.2); CARBON DIOXIDE 24 mmol/L (21-31); CHLORIDE 110 mmol/L (97-110); CREATININE 1.97 mg/dl (0.44-1.00); GLUCOSE 215 mg/dl (70-220); MAGNESIUM 2.2 mg/dl (1.7-2.5); SODIUM 146 mmol/L (135-144); TOTAL PROTEIN 5.9 g/dl (6.1-8.1)
[2018-09-11] MEDS ORDERED: DEXAMETHASONE 4 MG/ML 1 ML INJ IV (05:00)
[2018-09-11] MEDS: PANTOPRAZOLE (EC) 40 MG TAB PO (05:07)
[2018-09-11] MEDS: PIPER-TAZO 2.25 GM (PMX) 50 ML IVPB ×3 (05:07→21:17)
[2018-09-11] MEDS: ESCITALOPRAM 10 MG TAB PO (09:04)
[2018-09-11] MEDS: CLOPIDOGREL 75 MG TAB PO (09:05)
[2018-09-11] MEDS: ASPIRIN 81 MG TAB PO (09:05)
[2018-09-11] MEDS: ISOSORBIDE MONONITRATE(SR)60 MG TAB PO (09:05)
[2018-09-11] MEDS: DOCUSATE SODIUM 100 MG CAP PO ×2 (09:05→20:24)
[2018-09-11] MEDS: RANOLAZINE (SR) 500 MG TAB PO ×2 (09:06→20:24)
[2018-09-11] MEDS: NITROGLYCERIN 50 MG/D5W (PMX) 250 ML IV ×2 (15:04→23:59)
[2018-09-11] MEDS ORDERED: MIDAZOLAM 1 MG/ML 2 ML INJ (15:28)
[2018-09-11] MEDS ORDERED: FENTAnyl 50 MCG/ML VIAL (15:28)
[2018-09-11] MEDS ORDERED: HEPARIN 1000 UNITS/ML 10 ML INJ (16:17)
[2018-09-11] MEDS ORDERED: IODIXANOL LOCM 100 ML BTL (16:20)
[2018-09-11] MEDS ORDERED: IOHEXOL 350MG/ML 50 ML BTL (16:20)
[2018-09-11] MEDS ORDERED: LIDOCAINE 1% (MDV) 20 ML INJ (16:20)
[2018-09-11] MEDS: DIAZEPAM 5 MG TAB PO (19:00)
[2018-09-11] MEDS: MIRTAZAPINE 15 MG TAB PO (20:24)
[2018-09-11] MEDS: ATORVASTATIN 80 MG TAB PO (20:24)
[2018-09-12] MEDS: ALBUTEROL/IPRATROPIUM (NEB) 3 ML AMP HHN (00:19)
[2018-09-12] MEDS: INSULIN ASPART [NOVOLOG] 3 ML PEN SC ×6 (01:16→20:24)
[2018-09-12] MEDS: ACCU-CHEK XX (01:17)
[2018-09-12] MEDS: morphine 2 MG INJ IV ×3 (03:01→20:35)
[2018-09-12 05:05] LABS: ADD MAN DIFF? NO
[2018-09-12 05:13] LABS: BASOPHIL # 0.1 10^3/ul (0.0-0.1); BASOPHILS % 0.3 % (0.0-2.0); EOSINOPHILS # 0.1 10^3/ul (0.0-0.5); EOSINOPHILS % 0.6 % (0.0-7.0); HEMATOCRIT 26.3 % (37.0-47.0); LYMPHOCYTES # 1.5 10^3/ul (0.8-2.9); LYMPHOCYTES % 6.9 % (15.0-51.0); MEAN CORPUSCULAR HEMOGLOBIN 29.5 pg (29.0-33.0); MEAN CORPUSCULAR HGB CONC 30.4 g/dl (32.0-37.0); MONOCYTE # 0.8 10^3/ul (0.3-0.9); MONOCYTES % 3.9 % (0.0-11.0); NEUTROPHIL # 18.8 10^3/ul (1.6-7.5); NUCLEATED RED BLOOD CELLS # 0.1 10^3/ul (0.0-0.0); NUCLEATED RED BLOOD CELLS% 0.2 /100WBC (0.0-0.0); PLATELET COUNT 351 10^3/UL (140-415); RED BLOOD COUNT 2.71 10^6/ul (4.20-5.40); RED CELL DISTRIBUTION WIDTH 17.5 % (11.5-14.5)
[2018-09-12 05:13] LABS: WHITE BLOOD COUNT 21.6 10^3/ul (4.8-10.8)
[2018-09-12] MEDS: PIPER-TAZO 2.25 GM (PMX) 50 ML IVPB (05:21)
[2018-09-12] MEDS: PANTOPRAZOLE (EC) 40 MG TAB PO (05:21)
[2018-09-12 05:51] LABS: VANCOMYCIN,TROUGH 18.4 ug/ml (10.0-20.0)
[2018-09-12 05:52] LABS: ANION GAP 10 (5-13); BLOOD UREA NITROGEN 57 mg/dl (7-20); CALCIUM 8.6 mg/dl (8.4-10.2); CARBON DIOXIDE 27 mmol/L (21-31); CHLORIDE 109 mmol/L (97-110); CREATININE 2.62 mg/dl (0.44-1.00); GLUCOSE 117 mg/dl (70-220); MAGNESIUM 2.3 mg/dl (1.7-2.5); PHOSPHORUS 4.7 mg/dl (2.5-4.9); POTASSIUM 3.5 mmol/L (3.5-5.1); SODIUM 146 mmol/L (135-144)
[2018-09-12] MEDS: VANCOMYCIN 1 GM 250 ML IVPB (06:34)
[2018-09-12] MEDS: ASPIRIN 81 MG TAB PO (09:07)
[2018-09-12] MEDS: DOCUSATE SODIUM 100 MG CAP PO ×2 (09:07→20:23)
[2018-09-12] MEDS: CLOPIDOGREL 75 MG TAB PO (09:08)
[2018-09-12] MEDS: ESCITALOPRAM 10 MG TAB PO (09:08)
[2018-09-12] MEDS: ISOSORBIDE MONONITRATE(SR)60 MG TAB PO (09:09)
[2018-09-12] MEDS: FUROSEMIDE 40 MG INJ IV (09:10)
[2018-09-12] MEDS: RANOLAZINE (SR) 500 MG TAB PO ×2 (09:39→20:22)
[2018-09-12 13:02] LABS: B-TYPE NATRIURETIC PEPTIDE 44000 PG/ML (0-450)
[2018-09-12] MEDS: METHYLPREDNISOLONE 40 MG INJ IV ×2 (13:20→20:22)
[2018-09-12] MEDS: NS + KCL 20 MEQ 1,000 ML IV (14:19)
[2018-09-12] MEDS: ATORVASTATIN 80 MG TAB PO (20:22)
[2018-09-12] MEDS: MIRTAZAPINE 15 MG TAB PO (20:23)
[2018-09-13] MEDS: morphine 2 MG INJ IV ×3 (00:48→23:09)
[2018-09-13] MEDS: ACCU-CHEK XX (00:52)
[2018-09-13] MEDS: INSULIN ASPART [NOVOLOG] 3 ML PEN SC ×6 (00:52→20:36)
[2018-09-13] MEDS: NS + KCL 20 MEQ 1,000 ML IV ×2 (05:00→10:39)
[2018-09-13 05:17] LABS: ADD MAN DIFF? NO
[2018-09-13 05:19] LABS: WHITE BLOOD COUNT 21.4 10^3/ul (4.8-10.8)
[2018-09-13 05:19] LABS: BASOPHILS % 0.1 % (0.0-2.0); HEMATOCRIT 27.6 % (37.0-47.0); HEMOGLOBIN 8.4 g/dl (12.0-16.0); LYMPHOCYTES % 4.6 % (15.0-51.0); MEAN CORPUSCULAR HEMOGLOBIN 30.4 pg (29.0-33.0); MEAN CORPUSCULAR HGB CONC 30.4 g/dl (32.0-37.0); MEAN PLATELET VOLUME 10.2 fl (7.4-10.4); MONOCYTE # 0.1 10^3/ul (0.3-0.9); MONOCYTES % 0.7 % (0.0-11.0); NEUTROPHILS % 93.2 % (39.0-77.0); NUCLEATED RED BLOOD CELLS% 0.2 /100WBC (0.0-0.0); PLATELET COUNT 342 10^3/UL (140-415); RED BLOOD COUNT 2.76 10^6/ul (4.20-5.40); RED CELL DISTRIBUTION WIDTH 17.7 % (11.5-14.5)
[2018-09-13] MEDS: PANTOPRAZOLE (EC) 40 MG TAB PO (05:33)
[2018-09-13 05:44] LABS: ANION GAP 9 (5-13); BLOOD UREA NITROGEN 65 mg/dl (7-20); CALCIUM 8.2 mg/dl (8.4-10.2); CARBON DIOXIDE 24 mmol/L (21-31); CHLORIDE 109 mmol/L (97-110); CREATININE 2.89 mg/dl (0.44-1.00); GLUCOSE 140 mg/dl (70-220); MAGNESIUM 2.4 mg/dl (1.7-2.5); PHOSPHORUS 6.7 mg/dl (2.5-4.9); POTASSIUM 4.1 mmol/L (3.5-5.1); SODIUM 142 mmol/L (135-144)
[2018-09-13] MEDS: NITROGLYCERIN (SL) 0.4 MG TAB SL (08:03)
[2018-09-13] MEDS: FUROSEMIDE 40 MG INJ IV ×2 (08:20→12:40)
[2018-09-13] MEDS: ALBUTEROL/IPRATROPIUM (NEB) 3 ML AMP HHN ×2 (08:25→19:45)
[2018-09-13 09:00] LABS: AADO2 Arterial 304.7 mmHg (7.0-24.0); Arterial Base Excess -11.5 mmol/L (-3.0-3); Arterial Blood Gas Oxygen Sat 89.5 mmHG (95.0-100.0); Arterial COHb 0.3 % (0.0-3.0); Arterial HCO3 16.9 mmol/L (22.0-26.0); Arterial MetHb 0.3 % (0.0-1.5); Arterial pCO2 49.2 mmhg (35-45); MODE MASK - SIMPLE; Site LB
[2018-09-13] MEDS: NA BICARBONATE 8.4% 50 ML SYG IV (09:16)
[2018-09-13] MEDS: METHYLPREDNISOLONE 40 MG INJ IV (09:25)
[2018-09-13] MEDS: DOCUSATE SODIUM 100 MG CAP PO ×2 (09:33→20:33)
[2018-09-13] MEDS: ASPIRIN 81 MG TAB PO (09:33)
[2018-09-13] MEDS: ESCITALOPRAM 10 MG TAB PO (09:33)
[2018-09-13] MEDS: ISOSORBIDE MONONITRATE(SR)60 MG TAB PO (09:34)
[2018-09-13] MEDS: CLOPIDOGREL 75 MG TAB PO (09:34)
[2018-09-13] MEDS ORDERED: SODIUM BICARBONATE (IV ADD) 100 MEQ in DEXTROSE 5% 1,000 ML IV (11:00)
[2018-09-13] MEDS: ALBUMIN HUMAN 25% 100 ML IV (11:32)
[2018-09-13] MEDS: SODIUM BICARBONATE (IV ADD) 100 MEQ in DEXTROSE 5% 900 ML IV (13:05)
[2018-09-13 15:36] LABS: AADO2 Arterial 157.8 mmHg (7.0-24.0); Allen Test ACCEPTAB; Arterial Base Excess -3.5 mmol/L (-3.0-3); Arterial HCO3 22.9 mmol/L (22.0-26.0); Arterial pCO2 46.3 mmhg (35-45); MODE NASAL CANNULA; Site Right Radial
[2018-09-13 17:11] LABS: ANION GAP 11 (5-13); BLOOD UREA NITROGEN 69 mg/dl (7-20); CARBON DIOXIDE 27 mmol/L (21-31); CHLORIDE 108 mmol/L (97-110); CREATININE 3.11 mg/dl (0.44-1.00); GLUCOSE 175 mg/dl (70-220); POTASSIUM 4.2 mmol/L (3.5-5.1); SODIUM 146 mmol/L (135-144)
[2018-09-13] MEDS: SOD CHLORIDE 0.45% 1,000 ML IV (17:33)
[2018-09-13] MEDS: ATORVASTATIN 80 MG TAB PO (20:33)
[2018-09-13] MEDS: MIRTAZAPINE 15 MG TAB PO (20:33)
[2018-09-14] MEDS: INSULIN ASPART [NOVOLOG] 3 ML PEN SC ×6 (01:24→20:29)
[2018-09-14] MEDS: ACCU-CHEK XX (01:24)
[2018-09-14] MEDS: morphine 2 MG INJ IV (03:49)
[2018-09-14 04:37] LABS: ADD MAN DIFF? NO
[2018-09-14 04:42] LABS: WHITE BLOOD COUNT 23.8 10^3/ul (4.8-10.8)
[2018-09-14 04:42] LABS: ABNORMAL IP MESSAGE 1; BASOPHIL # 0.1 10^3/ul (0.0-0.1); BASOPHILS % 0.2 % (0.0-2.0); HEMATOCRIT 25.6 % (37.0-47.0); HEMOGLOBIN 7.9 g/dl (12.0-16.0); LYMPHOCYTES # 1.4 10^3/ul (0.8-2.9); LYMPHOCYTES % 5.8 % (15.0-51.0); MEAN CORPUSCULAR HEMOGLOBIN 30.6 pg (29.0-33.0); MEAN CORPUSCULAR HGB CONC 30.9 g/dl (32.0-37.0); MEAN CORPUSCULAR VOLUME 99.2 fl (82.0-101.0); MEAN PLATELET VOLUME 10.1 fl (7.4-10.4); MONOCYTES % 4.1 % (0.0-11.0); NEUTROPHIL # 20.6 10^3/ul (1.6-7.5); NEUTROPHILS % 86.8 % (39.0-77.0); NUCLEATED RED BLOOD CELLS # 0.3 10^3/ul (0.0-0.0); NUCLEATED RED BLOOD CELLS% 1.1 /100WBC (0.0-0.0); PLATELET COUNT 321 10^3/UL (140-415); RED BLOOD COUNT 2.58 10^6/ul (4.20-5.40); RED CELL DISTRIBUTION WIDTH 18.1 % (11.5-14.5)
[2018-09-14 04:46] LABS: POSITIVE DIFF @See below
[2018-09-14] MEDS: PANTOPRAZOLE (EC) 40 MG TAB PO (05:08)
[2018-09-14 05:15] LABS: ANION GAP 13 (5-13); BLOOD UREA NITROGEN 74 mg/dl (7-20); CARBON DIOXIDE 25 mmol/L (21-31); CHLORIDE 106 mmol/L (97-110); CREATININE 3.56 mg/dl (0.44-1.00); GLUCOSE 144 mg/dl (70-220); MAGNESIUM 2.3 mg/dl (1.7-2.5); SODIUM 144 mmol/L (135-144)
[2018-09-14] MEDS: SOD CHLORIDE 0.45% 1,000 ML IV (06:29)
[2018-09-14] MEDS: ALBUTEROL/IPRATROPIUM (NEB) 3 ML AMP HHN ×3 (08:02→15:42)
[2018-09-14] MEDS: FUROSEMIDE 40 MG INJ IV (08:17)
[2018-09-14] MEDS: ESCITALOPRAM 10 MG TAB PO (09:18)
[2018-09-14] MEDS: CLOPIDOGREL 75 MG TAB PO (09:18)
[2018-09-14] MEDS: ASPIRIN 81 MG TAB PO (09:18)
[2018-09-14] MEDS: ISOSORBIDE MONONITRATE(SR)60 MG TAB PO (09:19)
[2018-09-14 09:20] LABS: AADO2 Arterial 161.5 mmHg (7.0-24.0); Allen Test ACCEPTAB; Arterial Base Excess -4.1 mmol/L (-3.0-3); Arterial Blood Gas Oxygen Sat 91.5 mmHG (95.0-100.0); Arterial COHb 0.1 % (0.0-3.0); Arterial HCO3 21.3 mmol/L (22.0-26.0); Arterial MetHb 0.5 % (0.0-1.5); Arterial pCO2 40.4 mmhg (35-45); MODE NASAL CANNULA; Site Left Radial
[2018-09-14] MEDS: DOCUSATE SODIUM 100 MG CAP PO ×2 (09:20→20:27)
[2018-09-14] MEDS ORDERED: BUMETANIDE 25 MG in DEXTROSE 5% 150 ML IV (11:00)
[2018-09-14 11:06] LABS: ADD MAN DIFF? NO
[2018-09-14 11:13] LABS: ABNORMAL IP MESSAGE 1; BASOPHIL # 0.1 10^3/ul (0.0-0.1); BASOPHILS % 0.2 % (0.0-2.0); HEMATOCRIT 25.2 % (37.0-47.0); HEMOGLOBIN 7.7 g/dl (12.0-16.0); LYMPHOCYTES # 1.4 10^3/ul (0.8-2.9); LYMPHOCYTES % 5.7 % (15.0-51.0); MEAN CORPUSCULAR HEMOGLOBIN 30.4 pg (29.0-33.0); MEAN CORPUSCULAR HGB CONC 30.6 g/dl (32.0-37.0); MEAN CORPUSCULAR VOLUME 99.6 fl (82.0-101.0); NEUTROPHIL # 20.8 10^3/ul (1.6-7.5); NEUTROPHILS % 87.1 % (39.0-77.0); NUCLEATED RED BLOOD CELLS # 0.3 10^3/ul (0.0-0.0); NUCLEATED RED BLOOD CELLS% 1.1 /100WBC (0.0-0.0); PLATELET COUNT 306 10^3/UL (140-415); RED BLOOD COUNT 2.53 10^6/ul (4.20-5.40); RED CELL DISTRIBUTION WIDTH 18.3 % (11.5-14.5)
[2018-09-14 11:13] LABS: WHITE BLOOD COUNT 23.9 10^3/ul (4.8-10.8)
[2018-09-14 11:14] LABS: POSITIVE DIFF @See below
[2018-09-14] MEDS: BUMETANIDE 25 MG in DEXTROSE 5% 150 ML IV (12:26)
[2018-09-14 14:42] LABS: IMMEDIATE SPIN CROSSMATCH 1 1
[2018-09-14] MEDS: POLYETHYLENE GLYCOL 17 GM PACKET PO (18:05)
[2018-09-14] MEDS: ATORVASTATIN 80 MG TAB PO (20:27)
[2018-09-14] MEDS: MIRTAZAPINE 15 MG TAB PO (20:27)
[2018-09-15] MEDS: INSULIN ASPART [NOVOLOG] 3 ML PEN SC ×6 (01:00→21:00)
[2018-09-15] MEDS: ACCU-CHEK XX (01:24)
[2018-09-15] MEDS: SOD CHLORIDE 0.45% 1,000 ML IV (04:23)
[2018-09-15] MEDS: PANTOPRAZOLE (EC) 40 MG TAB PO (05:31)
[2018-09-15 05:58] LABS: ADD MAN DIFF? NO
[2018-09-15 06:06] LABS: WHITE BLOOD COUNT 24.9 10^3/ul (4.8-10.8)
[2018-09-15 06:06] LABS: ABNORMAL IP MESSAGE 1; BASOPHIL # 0.1 10^3/ul (0.0-0.1); BASOPHILS % 0.2 % (0.0-2.0); EOSINOPHILS # 0.2 10^3/ul (0.0-0.5); EOSINOPHILS % 0.9 % (0.0-7.0); HEMATOCRIT 30.3 % (37.0-47.0); HEMOGLOBIN 9.4 g/dl (12.0-16.0); LYMPHOCYTES # 1.4 10^3/ul (0.8-2.9); LYMPHOCYTES % 5.5 % (15.0-51.0); MEAN CORPUSCULAR HEMOGLOBIN 29.7 pg (29.0-33.0); MEAN CORPUSCULAR VOLUME 95.6 fl (82.0-101.0); MEAN PLATELET VOLUME 10.5 fl (7.4-10.4); MONOCYTE # 0.6 10^3/ul (0.3-0.9); MONOCYTES % 2.5 % (0.0-11.0); NEUTROPHIL # 22.1 10^3/ul (1.6-7.5); NEUTROPHILS % 88.7 % (39.0-77.0); NUCLEATED RED BLOOD CELLS # 0.3 10^3/ul (0.0-0.0); NUCLEATED RED BLOOD CELLS% 1.2 /100WBC (0.0-0.0); PLATELET COUNT 307 10^3/UL (140-415); RED BLOOD COUNT 3.17 10^6/ul (4.20-5.40); RED CELL DISTRIBUTION WIDTH 19.5 % (11.5-14.5)
[2018-09-15 06:27] LABS: POSITIVE DIFF @See below
[2018-09-15 06:42] LABS: ANION GAP 13 (5-13); BLOOD UREA NITROGEN 84 mg/dl (7-20); CALCIUM 7.8 mg/dl (8.4-10.2); CARBON DIOXIDE 22 mmol/L (21-31); CHLORIDE 104 mmol/L (97-110); CREATININE 3.43 mg/dl (0.44-1.00); GLUCOSE 88 mg/dl (70-220); PHOSPHORUS 6.5 mg/dl (2.5-4.9); POTASSIUM 3.6 mmol/L (3.5-5.1); SODIUM 139 mmol/L (135-144)
[2018-09-15] MEDS ORDERED: ISOSORBIDE MONONITRATE(SR)30 MG TAB PO (09:00)
[2018-09-15] MEDS: ESCITALOPRAM 10 MG TAB PO (09:54)
[2018-09-15] MEDS: POLYETHYLENE GLYCOL 17 GM PACKET PO (09:54)
[2018-09-15] MEDS: ASPIRIN 81 MG TAB PO (09:54)
[2018-09-15] MEDS: DOCUSATE SODIUM 100 MG CAP PO ×2 (09:54→21:55)
[2018-09-15] MEDS: CLOPIDOGREL 75 MG TAB PO (09:55)
[2018-09-15] MEDS: BUMETANIDE 25 MG in DEXTROSE 5% 150 ML IV (12:15)
[2018-09-15] MEDS: LIDOCAINE 1% (MPF) 5 ML VIAL SC (16:00)
[2018-09-15] MEDS: MIRTAZAPINE 15 MG TAB PO (21:55)
[2018-09-15] MEDS: ATORVASTATIN 80 MG TAB PO (21:55)
[2018-09-16] MEDS: INSULIN ASPART [NOVOLOG] 3 ML PEN SC ×6 (01:00→21:47)
[2018-09-16] MEDS: ACCU-CHEK XX (02:00)
[2018-09-16] MEDS: PANTOPRAZOLE (EC) 40 MG TAB PO (05:51)
[2018-09-16 06:05] LABS: ADD MAN DIFF? NO
[2018-09-16 06:07] LABS: WHITE BLOOD COUNT 23.4 10^3/ul (4.8-10.8)
[2018-09-16 06:07] LABS: ABNORMAL IP MESSAGE 1; BASOPHIL # 0.1 10^3/ul (0.0-0.1); BASOPHILS % 0.3 % (0.0-2.0); EOSINOPHILS # 0.3 10^3/ul (0.0-0.5); EOSINOPHILS % 1.1 % (0.0-7.0); HEMOGLOBIN 9.9 g/dl (12.0-16.0); LYMPHOCYTES # 0.7 10^3/ul (0.8-2.9); LYMPHOCYTES % 2.9 % (15.0-51.0); MEAN CORPUSCULAR HEMOGLOBIN 30.4 pg (29.0-33.0); MEAN CORPUSCULAR HGB CONC 31.9 g/dl (32.0-37.0); MEAN CORPUSCULAR VOLUME 95.1 fl (82.0-101.0); MEAN PLATELET VOLUME 10.2 fl (7.4-10.4); MONOCYTE # 0.4 10^3/ul (0.3-0.9); MONOCYTES % 1.7 % (0.0-11.0); NEUTROPHIL # 21.6 10^3/ul (1.6-7.5); NEUTROPHILS % 92.3 % (39.0-77.0); NUCLEATED RED BLOOD CELLS # 0.2 10^3/ul (0.0-0.0); NUCLEATED RED BLOOD CELLS% 0.8 /100WBC (0.0-0.0); PLATELET COUNT 256 10^3/UL (140-415); RED BLOOD COUNT 3.26 10^6/ul (4.20-5.40); RED CELL DISTRIBUTION WIDTH 19.4 % (11.5-14.5)
[2018-09-16 06:16] LABS: POSITIVE DIFF @See below
[2018-09-16 06:42] LABS: ANION GAP 12 (5-13); BLOOD UREA NITROGEN 81 mg/dl (7-20); CALCIUM 7.8 mg/dl (8.4-10.2); CARBON DIOXIDE 24 mmol/L (21-31); CHLORIDE 105 mmol/L (97-110); CREATININE 2.87 mg/dl (0.44-1.00); GLUCOSE 90 mg/dl (70-220); SODIUM 141 mmol/L (135-144)
[2018-09-16] MEDS: RISEDRONATE 35 MG TAB PO (07:05)
[2018-09-16 07:17] LABS: POTASSIUM 2.7 mmol/L (3.5-5.1)
[2018-09-16] MEDS: POTASSIUM CHLORIDE 50 ML IVPB ×4 (08:17→14:13)
[2018-09-16] MEDS: DOCUSATE SODIUM 100 MG CAP PO ×2 (08:59→21:35)
[2018-09-16] MEDS: ESCITALOPRAM 10 MG TAB PO (08:59)
[2018-09-16] MEDS: ASPIRIN 81 MG TAB PO (09:00)
[2018-09-16] MEDS: CLOPIDOGREL 75 MG TAB PO (09:00)
[2018-09-16] MEDS: ONDANSETRON 4 MG INJ IV (11:02)
[2018-09-16] MEDS: BUMETANIDE 25 MG in DEXTROSE 5% 150 ML IV (15:14)
[2018-09-16] MEDS: BUMETANIDE 1 MG INJ IV (17:45)
[2018-09-16] MEDS: ATORVASTATIN 80 MG TAB PO (21:35)
[2018-09-16] MEDS: MIRTAZAPINE 15 MG TAB PO (21:35)
[2018-09-16] MEDS: morphine 2 MG INJ IV (21:36)
[2018-09-17] MEDS: INSULIN ASPART [NOVOLOG] 3 ML PEN SC ×5 (01:39→17:00)
[2018-09-17] MEDS: ACCU-CHEK XX (02:00)
[2018-09-17] MEDS: BUMETANIDE 1 MG INJ IV ×2 (05:19→17:35)
[2018-09-17] MEDS: PANTOPRAZOLE (EC) 40 MG TAB PO (05:19)
[2018-09-17 06:56] LABS: ADD MAN DIFF? NO
[2018-09-17 07:01] LABS: ABNORMAL IP MESSAGE 1; BASOPHIL # 0.1 10^3/ul (0.0-0.1); BASOPHILS % 0.3 % (0.0-2.0); EOSINOPHILS # 0.3 10^3/ul (0.0-0.5); EOSINOPHILS % 1.1 % (0.0-7.0); HEMATOCRIT 35.6 % (37.0-47.0); HEMOGLOBIN 11.3 g/dl (12.0-16.0); LYMPHOCYTES % 4.3 % (15.0-51.0); MEAN CORPUSCULAR HEMOGLOBIN 30.1 pg (29.0-33.0); MEAN CORPUSCULAR HGB CONC 31.7 g/dl (32.0-37.0); MEAN CORPUSCULAR VOLUME 94.7 fl (82.0-101.0); MEAN PLATELET VOLUME 9.7 fl (7.4-10.4); MONOCYTE # 0.6 10^3/ul (0.3-0.9); MONOCYTES % 2.5 % (0.0-11.0); NEUTROPHIL # 21.5 10^3/ul (1.6-7.5); NEUTROPHILS % 89.8 % (39.0-77.0); NUCLEATED RED BLOOD CELLS # 0.1 10^3/ul (0.0-0.0); NUCLEATED RED BLOOD CELLS% 0.3 /100WBC (0.0-0.0); PLATELET COUNT 266 10^3/UL (140-415); RED BLOOD COUNT 3.76 10^6/ul (4.20-5.40); RED CELL DISTRIBUTION WIDTH 20.1 % (11.5-14.5)
[2018-09-17 07:08] LABS: POSITIVE DIFF @See below
[2018-09-17 07:23] LABS: ANION GAP 7 (5-13); BLOOD UREA NITROGEN 75 mg/dl (7-20); CALCIUM 8.5 mg/dl (8.4-10.2); CARBON DIOXIDE 28 mmol/L (21-31); CHLORIDE 107 mmol/L (97-110); CREATININE 2.36 mg/dl (0.44-1.00); GLUCOSE 128 mg/dl (70-220); POTASSIUM 3.5 mmol/L (3.5-5.1); SODIUM 142 mmol/L (135-144)
[2018-09-17] MEDS: ESCITALOPRAM 10 MG TAB PO (08:43)
[2018-09-17] MEDS: DOCUSATE SODIUM 100 MG CAP PO ×2 (08:43→21:43)
[2018-09-17] MEDS: CLOPIDOGREL 75 MG TAB PO (08:44)
[2018-09-17] MEDS: ASPIRIN 81 MG TAB PO (08:44)
[2018-09-17] MEDS: MEGESTROL (40 MG/ML) 10ML CUP PO (12:34)
[2018-09-17] MEDS: morphine 2 MG INJ IV (16:12)
[2018-09-17] MEDS: POLYETHYLENE GLYCOL 17 GM PACKET PO (17:38)
[2018-09-17] MEDS: Insulin NOVOLOG SS MILD Algorithm (SS with meals and bedtime) SC (21:00)
[2018-09-17] MEDS ORDERED: INSULIN ASPART [NOVOLOG] 3 ML PEN SC (21:00)
[2018-09-17] MEDS: ATORVASTATIN 80 MG TAB PO (21:43)
[2018-09-17] MEDS: MIRTAZAPINE 15 MG TAB PO (21:43)
[2018-09-18] MEDS: ACCU-CHEK XX (01:59)
[2018-09-18] MEDS: PANTOPRAZOLE (EC) 40 MG TAB PO (06:27)
[2018-09-18] MEDS: BUMETANIDE 1 MG INJ IV ×2 (06:27→17:43)
[2018-09-18 06:42] LABS: ADD MAN DIFF? NO
[2018-09-18 06:47] LABS: WHITE BLOOD COUNT 18.8 10^3/ul (4.8-10.8)
[2018-09-18 06:47] LABS: BASOPHIL # 0.1 10^3/ul (0.0-0.1); BASOPHILS % 0.3 % (0.0-2.0); EOSINOPHILS # 0.3 10^3/ul (0.0-0.5); EOSINOPHILS % 1.6 % (0.0-7.0); HEMATOCRIT 32.1 % (37.0-47.0); HEMOGLOBIN 10.1 g/dl (12.0-16.0); LYMPHOCYTES # 1.2 10^3/ul (0.8-2.9); LYMPHOCYTES % 6.4 % (15.0-51.0); MEAN CORPUSCULAR HEMOGLOBIN 30.3 pg (29.0-33.0); MEAN CORPUSCULAR HGB CONC 31.5 g/dl (32.0-37.0); MEAN CORPUSCULAR VOLUME 96.4 fl (82.0-101.0); MONOCYTE # 0.6 10^3/ul (0.3-0.9); MONOCYTES % 3.3 % (0.0-11.0); NEUTROPHIL # 16.3 10^3/ul (1.6-7.5); NEUTROPHILS % 86.6 % (39.0-77.0); PLATELET COUNT 223 10^3/UL (140-415); RED BLOOD COUNT 3.33 10^6/ul (4.20-5.40); RED CELL DISTRIBUTION WIDTH 19.8 % (11.5-14.5)
[2018-09-18 07:12] LABS: ANION GAP 4 (5-13); BLOOD UREA NITROGEN 66 mg/dl (7-20); CALCIUM 8.1 mg/dl (8.4-10.2); CARBON DIOXIDE 32 mmol/L (21-31); CHLORIDE 107 mmol/L (97-110); CREATININE 1.74 mg/dl (0.44-1.00); GLUCOSE 103 mg/dl (70-220); POTASSIUM 3.2 mmol/L (3.5-5.1); SODIUM 143 mmol/L (135-144)
[2018-09-18] MEDS: Insulin NOVOLOG SS MILD Algorithm (SS with meals and bedtime) SC ×4 (08:10→20:52)
[2018-09-18] MEDS: ESCITALOPRAM 10 MG TAB PO (08:32)
[2018-09-18] MEDS: POLYETHYLENE GLYCOL 17 GM PACKET PO (08:32)
[2018-09-18] MEDS: DOCUSATE SODIUM 100 MG CAP PO ×2 (08:32→20:48)
[2018-09-18] MEDS: CLOPIDOGREL 75 MG TAB PO (08:32)
[2018-09-18] MEDS: ASPIRIN 81 MG TAB PO (08:32)
[2018-09-18] MEDS: POTASSIUM CHLORIDE 100 ML IVPB ×2 (12:57→15:02)
[2018-09-18] MEDS: MIRTAZAPINE 15 MG TAB PO (20:46)
[2018-09-18] MEDS: ATORVASTATIN 80 MG TAB PO (20:47)
[2018-09-19] MEDS: ACCU-CHEK XX (02:00)
[2018-09-19] MEDS: PANTOPRAZOLE (EC) 40 MG TAB PO (05:36)
[2018-09-19] MEDS: BUMETANIDE 1 MG INJ IV (05:36)
[2018-09-19 06:53] LABS: ADD MAN DIFF? NO
[2018-09-19 06:59] LABS: BASOPHIL # 0.1 10^3/ul (0.0-0.1); BASOPHILS % 0.3 % (0.0-2.0); EOSINOPHILS # 0.3 10^3/ul (0.0-0.5); EOSINOPHILS % 1.5 % (0.0-7.0); HEMATOCRIT 32.4 % (37.0-47.0); HEMOGLOBIN 9.9 g/dl (12.0-16.0); LYMPHOCYTES # 1.4 10^3/ul (0.8-2.9); LYMPHOCYTES % 7.9 % (15.0-51.0); MEAN CORPUSCULAR HEMOGLOBIN 29.6 pg (29.0-33.0); MEAN CORPUSCULAR HGB CONC 30.6 g/dl (32.0-37.0); MONOCYTE # 0.7 10^3/ul (0.3-0.9); MONOCYTES % 3.7 % (0.0-11.0); NEUTROPHIL # 15.5 10^3/ul (1.6-7.5); NEUTROPHILS % 85.5 % (39.0-77.0); PLATELET COUNT 210 10^3/UL (140-415); RED BLOOD COUNT 3.34 10^6/ul (4.20-5.40); RED CELL DISTRIBUTION WIDTH 19.9 % (11.5-14.5)
[2018-09-19 06:59] LABS: WHITE BLOOD COUNT 18.1 10^3/ul (4.8-10.8)
[2018-09-19] MEDS: Insulin NOVOLOG SS MILD Algorithm (SS with meals and bedtime) SC ×4 (07:25→20:32)
[2018-09-19 07:27] LABS: ANION GAP 4 (5-13); BLOOD UREA NITROGEN 55 mg/dl (7-20); CALCIUM 8.2 mg/dl (8.4-10.2); CARBON DIOXIDE 33 mmol/L (21-31); CHLORIDE 105 mmol/L (97-110); CREATININE 1.23 mg/dl (0.44-1.00); GLUCOSE 102 mg/dl (70-220); POTASSIUM 3.3 mmol/L (3.5-5.1); SODIUM 142 mmol/L (135-144)
[2018-09-19] MEDS: CLOPIDOGREL 75 MG TAB PO (08:40)
[2018-09-19] MEDS: BUMETANIDE 1 MG TAB PO (08:41)
[2018-09-19] MEDS: ASPIRIN 81 MG TAB PO (08:41)
[2018-09-19] MEDS: DOCUSATE SODIUM 100 MG CAP PO ×2 (08:41→20:32)
[2018-09-19] MEDS: ESCITALOPRAM 10 MG TAB PO (08:41)
[2018-09-19] MEDS: POTASSIUM CHLORIDE (SR) 20 MEQ TAB PO ×2 (08:42→20:31)
[2018-09-19] MEDS: POTASSIUM CHLORIDE 100 ML IVPB ×2 (11:35→14:13)
[2018-09-19] MEDS: morphine 2 MG INJ IV (15:33)
[2018-09-19] MEDS: POLYETHYLENE GLYCOL 17 GM PACKET PO (15:37)
[2018-09-19] MEDS: KETOROLAC 15 MG INJ IV (18:46)
[2018-09-19] MEDS: MIRTAZAPINE 15 MG TAB PO (20:32)
[2018-09-19] MEDS: ATORVASTATIN 80 MG TAB PO (20:32)
[2018-09-19] MEDS: DEXTROSE 5%-0.45% NACL 1,000 ML IV (23:06)
[2018-09-20] MEDS: ACCU-CHEK XX (01:37)
[2018-09-20] MEDS: PANTOPRAZOLE (EC) 40 MG TAB PO (05:29)
[2018-09-20] MEDS: Insulin NOVOLOG SS MILD Algorithm (NPO/TPN/ENTERAL FEEDS) SC ×5 (05:40→20:31)
[2018-09-20] MEDS ORDERED: INSULIN ASPART [NOVOLOG] 3 ML PEN SC (06:00)
[2018-09-20 06:18] LABS: ADD MAN DIFF? NO
[2018-09-20 06:21] LABS: BASOPHILS % 0.2 % (0.0-2.0); EOSINOPHILS # 0.1 10^3/ul (0.0-0.5); EOSINOPHILS % 0.5 % (0.0-7.0); HEMATOCRIT 29.9 % (37.0-47.0); HEMOGLOBIN 9.4 g/dl (12.0-16.0); LYMPHOCYTES # 1.3 10^3/ul (0.8-2.9); LYMPHOCYTES % 6.4 % (15.0-51.0); MEAN CORPUSCULAR HEMOGLOBIN 30.4 pg (29.0-33.0); MEAN CORPUSCULAR HGB CONC 31.4 g/dl (32.0-37.0); MEAN CORPUSCULAR VOLUME 96.8 fl (82.0-101.0); MEAN PLATELET VOLUME 10.1 fl (7.4-10.4); MONOCYTE # 0.4 10^3/ul (0.3-0.9); MONOCYTES % 2.2 % (0.0-11.0); NEUTROPHIL # 18.4 10^3/ul (1.6-7.5); NEUTROPHILS % 89.9 % (39.0-77.0); PLATELET COUNT 181 10^3/UL (140-415); RED BLOOD COUNT 3.09 10^6/ul (4.20-5.40); RED CELL DISTRIBUTION WIDTH 19.9 % (11.5-14.5)
[2018-09-20 06:21] LABS: WHITE BLOOD COUNT 20.5 10^3/ul (4.8-10.8)
[2018-09-20] MEDS: KETOROLAC 15 MG INJ IV ×2 (06:58→13:34)
[2018-09-20 07:09] LABS: ANION GAP 2 (5-13); BLOOD UREA NITROGEN 45 mg/dl (7-20); CALCIUM 8.1 mg/dl (8.4-10.2); CARBON DIOXIDE 33 mmol/L (21-31); CHLORIDE 107 mmol/L (97-110); CREATININE 1.09 mg/dl (0.44-1.00); GLUCOSE 131 mg/dl (70-220); MAGNESIUM 1.9 mg/dl (1.7-2.5); PHOSPHORUS 2.9 mg/dl (2.5-4.9); SODIUM 142 mmol/L (135-144)
[2018-09-20] MEDS: POTASSIUM CHLORIDE (SR) 20 MEQ TAB PO ×2 (09:00→20:31)
[2018-09-20] MEDS ORDERED: VANCOMYCIN IV PER PHARMACY XX (10:00)
[2018-09-20] MEDS: METOCLOPRAMIDE 10 MG INJ IV ×2 (12:22→18:43)
[2018-09-20] MEDS: VANCOMYCIN HCL 1.5 GM in SOD CHLORIDE 0.9% 250 ML IVPB (12:24)
[2018-09-20] MEDS: PIPER-TAZO 3.375 GM IV (PMX) 100 ML IVPB ×2 (12:25→18:44)
[2018-09-20] MEDS: ONDANSETRON 4 MG INJ IV (13:34)
[2018-09-20] MEDS: DOCUSATE SODIUM 100 MG CAP PO (15:21)
[2018-09-20] MEDS: BUMETANIDE 1 MG TAB PO (15:22)
[2018-09-20] MEDS: ASPIRIN 81 MG TAB PO (15:22)
[2018-09-20] MEDS: ESCITALOPRAM 10 MG TAB PO (15:22)
[2018-09-20] MEDS: CLOPIDOGREL 75 MG TAB PO (15:23)
[2018-09-20] MEDS ORDERED: METOCLOPRAMIDE 10 MG INJ IV (18:00)
[2018-09-20] MEDS: ATORVASTATIN 80 MG TAB PO (20:33)
[2018-09-20] MEDS: MIRTAZAPINE 15 MG TAB PO (20:33)
[2018-09-21] MEDS: Insulin NOVOLOG SS MILD Algorithm (NPO/TPN/ENTERAL FEEDS) SC ×6 (02:02→20:37)
[2018-09-21] MEDS: DOCUSATE SODIUM 10 MG/ML (10ML CUP) PO ×3 (02:03→20:34)
[2018-09-21] MEDS: PIPER-TAZO 3.375 GM IV (PMX) 100 ML IVPB ×3 (02:05→17:05)
[2018-09-21] MEDS: METOCLOPRAMIDE 10 MG INJ IV ×3 (02:05→17:05)
[2018-09-21] MEDS: PANTOPRAZOLE (EC) 40 MG TAB PO (05:43)
[2018-09-21 06:25] LABS: ADD MAN DIFF? NO
[2018-09-21 06:32] LABS: WHITE BLOOD COUNT 21.3 10^3/ul (4.8-10.8)
[2018-09-21 06:32] LABS: BASOPHIL # 0.1 10^3/ul (0.0-0.1); BASOPHILS % 0.3 % (0.0-2.0); EOSINOPHILS # 0.3 10^3/ul (0.0-0.5); EOSINOPHILS % 1.2 % (0.0-7.0); HEMATOCRIT 28.8 % (37.0-47.0); HEMOGLOBIN 8.8 g/dl (12.0-16.0); LYMPHOCYTES # 0.7 10^3/ul (0.8-2.9); LYMPHOCYTES % 3.3 % (15.0-51.0); MEAN CORPUSCULAR HEMOGLOBIN 30.4 pg (29.0-33.0); MEAN CORPUSCULAR HGB CONC 30.6 g/dl (32.0-37.0); MEAN CORPUSCULAR VOLUME 99.7 fl (82.0-101.0); MEAN PLATELET VOLUME 10.1 fl (7.4-10.4); MONOCYTE # 0.4 10^3/ul (0.3-0.9); MONOCYTES % 1.7 % (0.0-11.0); NEUTROPHIL # 19.7 10^3/ul (1.6-7.5); NEUTROPHILS % 92.6 % (39.0-77.0); PLATELET COUNT 145 10^3/UL (140-415); RED BLOOD COUNT 2.89 10^6/ul (4.20-5.40); RED CELL DISTRIBUTION WIDTH 19.9 % (11.5-14.5)
[2018-09-21 07:41] LABS: ANION GAP 6 (5-13); BLOOD UREA NITROGEN 49 mg/dl (7-20); CALCIUM 7.9 mg/dl (8.4-10.2); CARBON DIOXIDE 28 mmol/L (21-31); CHLORIDE 107 mmol/L (97-110); CREATININE 1.55 mg/dl (0.44-1.00); GLUCOSE 113 mg/dl (70-220); POTASSIUM 5.2 mmol/L (3.5-5.1); SODIUM 141 mmol/L (135-144)
[2018-09-21] MEDS: ESCITALOPRAM 10 MG TAB PO (10:50)
[2018-09-21] MEDS: CLOPIDOGREL 75 MG TAB PO (10:50)
[2018-09-21] MEDS: POTASSIUM CHLORIDE (SR) 20 MEQ TAB PO ×2 (10:51→20:34)
[2018-09-21] MEDS: ASPIRIN 81 MG TAB PO (10:51)
[2018-09-21] MEDS: BUMETANIDE 0.5 MG TAB PO (10:51)
[2018-09-21] MEDS: VANCOMYCIN 1 GM (PMX) 250 ML IVPB (13:56)
[2018-09-21] MEDS: KETOROLAC 15 MG INJ IV (16:18)
[2018-09-21] MEDS: morphine 2 MG INJ IV ×2 (18:05→20:33)
[2018-09-21] MEDS: MIRTAZAPINE 15 MG TAB PO (20:33)
[2018-09-21] MEDS: ATORVASTATIN 80 MG TAB PO (20:33)
[2018-09-22] MEDS: Insulin NOVOLOG SS MILD Algorithm (NPO/TPN/ENTERAL FEEDS) SC ×6 (00:48→21:00)
[2018-09-22] MEDS: morphine 2 MG INJ IV (02:01)
[2018-09-22] MEDS: METOCLOPRAMIDE 10 MG INJ IV ×2 (02:03→09:06)
[2018-09-22] MEDS: PIPER-TAZO 3.375 GM IV (PMX) 100 ML IVPB ×3 (02:03→18:42)
[2018-09-22] MEDS ORDERED: PANTOPRAZOLE 40 MG INJ IV (06:00)
[2018-09-22 06:52] LABS: ADD MAN DIFF? NO
[2018-09-22 06:58] LABS: ABNORMAL IP MESSAGE 1; BASOPHIL # 0.1 10^3/ul (0.0-0.1); BASOPHILS % 0.3 % (0.0-2.0); EOSINOPHILS # 0.1 10^3/ul (0.0-0.5); EOSINOPHILS % 0.7 % (0.0-7.0); HEMATOCRIT 28.9 % (37.0-47.0); HEMOGLOBIN 8.6 g/dl (12.0-16.0); LYMPHOCYTES # 0.5 10^3/ul (0.8-2.9); LYMPHOCYTES % 2.9 % (15.0-51.0); MEAN CORPUSCULAR HEMOGLOBIN 30.3 pg (29.0-33.0); MEAN CORPUSCULAR HGB CONC 29.8 g/dl (32.0-37.0); MEAN CORPUSCULAR VOLUME 101.8 fl (82.0-101.0); MEAN PLATELET VOLUME 10.4 fl (7.4-10.4); MONOCYTE # 0.3 10^3/ul (0.3-0.9); MONOCYTES % 1.9 % (0.0-11.0); NEUTROPHIL # 16.9 10^3/ul (1.6-7.5); NEUTROPHILS % 93.3 % (39.0-77.0); PLATELET COUNT 140 10^3/UL (140-415); RED BLOOD COUNT 2.84 10^6/ul (4.20-5.40); RED CELL DISTRIBUTION WIDTH 19.8 % (11.5-14.5)
[2018-09-22 06:58] LABS: WHITE BLOOD COUNT 18.1 10^3/ul (4.8-10.8)
[2018-09-22 07:00] LABS: POSITIVE DIFF @See below
[2018-09-22 07:13] LABS: ANION GAP 8 (5-13); BLOOD UREA NITROGEN 53 mg/dl (7-20); CALCIUM 7.8 mg/dl (8.4-10.2); CARBON DIOXIDE 26 mmol/L (21-31); CHLORIDE 108 mmol/L (97-110); CREATININE 2.33 mg/dl (0.44-1.00); GLUCOSE 107 mg/dl (70-220); MAGNESIUM 1.9 mg/dl (1.7-2.5); POTASSIUM 5.9 mmol/L (3.5-5.1); SODIUM 142 mmol/L (135-144)
[2018-09-22] MEDS: ESCITALOPRAM 10 MG TAB PO (09:06)
[2018-09-22] MEDS: DOCUSATE SODIUM 10 MG/ML (10ML CUP) PO (09:06)
[2018-09-22] MEDS: FAMOTIDINE 20 MG INJ IV (09:06)
[2018-09-22] MEDS: ASPIRIN 81 MG TAB PO (09:06)
[2018-09-22] MEDS: BUMETANIDE 1 MG TAB PO (09:06)
[2018-09-22] MEDS: CLOPIDOGREL 75 MG TAB PO (09:06)
[2018-09-22] MEDS: KETOROLAC 15 MG INJ IV (09:06)
[2018-09-22] MEDS: VANCOMYCIN 1 GM (PMX) 250 ML IVPB (11:57)
[2018-09-22] MEDS: MIRTAZAPINE 15 MG TAB PO (21:52)
[2018-09-22] MEDS: SODIUM POLYSTYRENE 15 GM KIT (POWDER + SORBITOL) PO (21:53)
[2018-09-22] MEDS ORDERED: LORAZEPAM 2 MG INJ IV (22:30)
[2018-09-23] MEDS: Insulin NOVOLOG SS MILD Algorithm (NPO/TPN/ENTERAL FEEDS) SC ×6 (00:30→20:37)
[2018-09-23] MEDS: PIPER-TAZO 3.375 GM IV (PMX) 100 ML IVPB ×3 (02:08→17:23)
[2018-09-23] MEDS ORDERED: LIDOCAINE HCL (03:00)
[2018-09-23] MEDS ORDERED: EPINEPHrine 10 MCG/1ml (10 ML SYG) IV (03:00)
[2018-09-23] MEDS ORDERED: CA CHLORIDE 10% 10 ML SYRINGE (03:00)
[2018-09-23] MEDS ORDERED: NA BICARBONATE 8.4% 50 ML SYG (03:00)
[2018-09-23] MEDS: ACETAMINOPHEN 325 MG TAB PO (06:18)
[2018-09-23 08:47] LABS: CREATININE 2.73 mg/dl (0.44-1.00)
[2018-09-23 08:47] LABS: BLOOD UREA NITROGEN 64 mg/dl (7-20)
[2018-09-23] MEDS: ESCITALOPRAM 10 MG TAB PO (09:00)
[2018-09-23] MEDS: BUMETANIDE 1 MG TAB PO (09:00)
[2018-09-23] MEDS: ASPIRIN 81 MG TAB PO (09:00)
[2018-09-23] MEDS: CLOPIDOGREL 75 MG TAB PO (09:00)
[2018-09-23] MEDS: FAMOTIDINE 20 MG INJ IV (10:33)
[2018-09-23 10:38] LABS: ADD UMIC YES; UR ASCORBIC ACID NEGATIVE (NEGATIVE); UR BACTERIA MODERATE /HPF (NONE SEEN); UR BILIRUBIN (Dip) NEGATIVE (NEGATIVE); UR BLOOD (Dip) 3+ mg/dL (NEGATIVE); UR BUDDING YEAST MANY /HPF (NONE SEEN); UR CLARITY TURBID (CLEAR); UR COLOR YELLOW (YELLOW); UR GLUCOSE (Dip) NEGATIVE (NEGATIVE); UR KETONES (Dip) NEGATIVE (NEGATIVE); UR LEUKOCYTE ESTERASE (Dip) 3+ Leu/ul (NEGATIVE); UR NITRITE (Dip) NEGATIVE (NEGATIVE); UR RBC > 182 /HPF (0-5); UR RENAL EPITHELIAL CELL FEW /HPF (NONE SEEN); UR SPECIFIC GRAVITY (Dip) 1.027 (1.003-1.030); UR TOTAL PROTEIN (Dip) 1+ mg/dl (NEGATIVE); UR UROBILINOGEN (Dip) NEGATIVE (NEGATIVE); UR WBC > 182 /HPF (0-5)
[2018-09-23] MEDS: FUROSEMIDE 40 MG INJ IV ×2 (10:55→19:58)
[2018-09-23 11:12] LABS: AADO2 Arterial 104.5 mmHg (7.0-24.0); Allen Test ACCEPTAB; Arterial Base Excess -3.9 mmol/L (-3.0-3); Arterial Blood Gas Oxygen Sat 90.8 mmHG (95.0-100.0); Arterial COHb 0.3 % (0.0-3.0); Arterial Fraction of Oxyhgb 90.2 % (93.0-99.0); Arterial MetHb 0.4 % (0.0-1.5); Arterial pCO2 37.3 mmhg (35-45); Blood Gas IEPAP 15/5; Blood Gas PS 10; MODE MASK - BIPAP; Site Left Radial
[2018-09-23 20:14] LABS: TROPONIN-I 0.419 ng/ml (0.000-0.120)
[2018-09-23 20:17] LABS: AADO2 Arterial 631.2 mmHg (7.0-24.0); Arterial Base Excess -3.5 mmol/L (-3.0-3); Arterial Blood Gas Oxygen Sat 79.7 mmHG (95.0-100.0); Arterial COHb 0.3 % (0.0-3.0); Arterial Fraction of Oxyhgb 79.3 % (93.0-99.0); Arterial HCO3 20.7 mmol/L (22.0-26.0); Arterial MetHb 0.2 % (0.0-1.5); Arterial pCO2 34.2 mmhg (35-45); Blood Gas IEPAP 20/10; Blood Gas PS 10; MODE MASK - BIPAP; Site Right Brachial
[2018-09-23] MEDS: BUMETANIDE 1 MG INJ IV (21:34)
[2018-09-24] MEDS: Insulin NOVOLOG SS MILD Algorithm (NPO/TPN/ENTERAL FEEDS) SC ×5 (01:00→19:15)
[2018-09-24] MEDS: PIPER-TAZO 3.375 GM IV (PMX) 100 ML IVPB ×3 (02:18→19:10)
[2018-09-24] MEDS: FLUCONAZOLE 200 MG (PMX) 100 ML IVPB ×2 (02:18→21:28)
[2018-09-24 05:13] LABS: AADO2 Arterial 590.7 mmHg (7.0-24.0); Allen Test ACCEPTAB; Arterial Base Excess -9.8 mmol/L (-3.0-3); Arterial Blood Gas Oxygen Sat 93.3 mmHG (95.0-100.0); Arterial COHb 0.3 % (0.0-3.0); Arterial Fraction of Oxyhgb 92.6 % (93.0-99.0); Arterial HCO3 16.6 mmol/L (22.0-26.0); Arterial MetHb 0.5 % (0.0-1.5); Arterial pCO2 38.3 mmhg (35-45); MODE VENT - AC; Site Right Brachial
[2018-09-24] MEDS ORDERED: NORepinephrine 8MG/250 ML (PMX 0 ML (05:25)
[2018-09-24 05:30] LABS: ADD MAN DIFF? NO
[2018-09-24 05:39] LABS: BASOPHIL # 0.1 10^3/ul (0.0-0.1); BASOPHILS % 0.4 % (0.0-2.0); EOSINOPHILS # 0.2 10^3/ul (0.0-0.5); EOSINOPHILS % 0.8 % (0.0-7.0); HEMATOCRIT 28.4 % (37.0-47.0); HEMOGLOBIN 8.6 g/dl (12.0-16.0); LYMPHOCYTES # 3.5 10^3/ul (0.8-2.9); LYMPHOCYTES % 14.8 % (15.0-51.0); MEAN CORPUSCULAR HEMOGLOBIN 30.4 pg (29.0-33.0); MEAN CORPUSCULAR HGB CONC 30.3 g/dl (32.0-37.0); MEAN CORPUSCULAR VOLUME 100.4 fl (82.0-101.0); MEAN PLATELET VOLUME 10.9 fl (7.4-10.4); MONOCYTE # 0.6 10^3/ul (0.3-0.9); MONOCYTES % 2.6 % (0.0-11.0); NEUTROPHIL # 18.7 10^3/ul (1.6-7.5); NEUTROPHILS % 79.3 % (39.0-77.0); NUCLEATED RED BLOOD CELLS% 0.1 /100WBC (0.0-0.0); PLATELET COUNT 179 10^3/UL (140-415); RED BLOOD COUNT 2.83 10^6/ul (4.20-5.40); RED CELL DISTRIBUTION WIDTH 19.3 % (11.5-14.5)
[2018-09-24 05:39] LABS: WHITE BLOOD COUNT 23.6 10^3/ul (4.8-10.8)
[2018-09-24 06:05] LABS: CREATINE KINASE 129 IU/L (23-200)
[2018-09-24 06:09] LABS: LACTIC ACID 5.1 mmol/L (0.5-2.0)
[2018-09-24 06:17] LABS: CK INDEX 2.7; CK-MB 3.42 ng/ml (0.0-2.4)
[2018-09-24 06:22] LABS: ANION GAP 15 (5-13); BLOOD UREA NITROGEN 70 mg/dl (7-20); CALCIUM 10.5 mg/dl (8.4-10.2); CARBON DIOXIDE 22 mmol/L (21-31); CHLORIDE 112 mmol/L (97-110); GLUCOSE 116 mg/dl (70-220); MAGNESIUM 2.3 mg/dl (1.7-2.5); PHOSPHORUS 9.8 mg/dl (2.5-4.9); POTASSIUM 5.6 mmol/L (3.5-5.1); SODIUM 149 mmol/L (135-144)
[2018-09-24] MEDS: NA POLYST SULFON 15 GM/60 ML BTL PO (08:15)
[2018-09-24] MEDS: FAMOTIDINE 20 MG INJ IV (09:00)
[2018-09-24] MEDS: MIDAZOLAM 1 MG/ML 2 ML INJ IV (09:00)
[2018-09-24] MEDS: BUMETANIDE 12 MG in DEXTROSE 5% 72 ML IV (10:35)
[2018-09-24] MEDS: SODIUM BICARBONATE (IV ADD) 100 MEQ in DEXTROSE 5%-0.45% NACL 1,000 ML IV ×2 (10:35→20:43)
[2018-09-24] MEDS: FENTAnyl (DRIP) 1000 mcg/100mL 100 ML IV (10:43)
[2018-09-24] MEDS: ESCITALOPRAM 10 MG TAB PO (10:53)
[2018-09-24] MEDS: CLOPIDOGREL 75 MG TAB PO (10:53)
[2018-09-24] MEDS: ASPIRIN 81 MG TAB PO (10:53)
[2018-09-24] MEDS ORDERED: PHENYLephrine 20MG IN 250 ML 250 ML ×2 (11:05→20:16)
[2018-09-24 11:21] LABS: LACTIC ACID 2.4 mmol/L (0.5-2.0)
[2018-09-24] MEDS: SODIUM POLYSTYRENE 15 GM KIT (POWDER + SORBITOL) PO (12:00)
[2018-09-24] MEDS ORDERED: VANCOMYCIN 1 GM 250 ML IVPB (12:00)
[2018-09-24] MEDS: MIDAZOLAM (DRIP) 50 mg/50 mL 50 ML IV (12:09)
[2018-09-24] MEDS: PHENYLephrine 80 MG in DEXTROSE 5% 242 ML IV ×5 (12:11→23:57)
[2018-09-24] MEDS: PHENYLephrine 40 MG in DEXTROSE 5% 246 ML IV ×2 (12:13→14:49)
[2018-09-24 16:56] LABS: LACTIC ACID 2.1 mmol/L (0.5-2.0)
[2018-09-24 19:54] LABS: AADO2 Arterial 622.2 mmHg (7.0-24.0); Allen Test ACCEPTAB; Arterial Base Excess 1.5 mmol/L (-3.0-3); Arterial Blood Gas Oxygen Sat 86.4 mmHG (95.0-100.0); Arterial COHb 0.2 % (0.0-3.0); Arterial Fraction of Oxyhgb 85.7 % (93.0-99.0); Arterial HCO3 25.1 mmol/L (22.0-26.0); Arterial MetHb 0.6 % (0.0-1.5); Arterial pCO2 35.5 mmhg (35-45); MODE VENT - AC; Site Left Radial
[2018-09-24 20:22] LABS: ANION GAP 9 (5-13); BLOOD UREA NITROGEN 65 mg/dl (7-20); CALCIUM 6.8 mg/dl (8.4-10.2); CARBON DIOXIDE 28 mmol/L (21-31); CHLORIDE 102 mmol/L (97-110); CREATININE 2.99 mg/dl (0.44-1.00); POTASSIUM 3.8 mmol/L (3.5-5.1); SODIUM 139 mmol/L (135-144)
[2018-09-24 20:35] LABS: GLUCOSE 692 mg/dl (70-220)
[2018-09-24] MEDS: INSULIN ASPART [NOVOLOG] 3 ML PEN SC (20:48)
[2018-09-24] MEDS: INSULIN GLARGINE [LANTus] (100 UNITS/ML) SYG SC (21:25)
[2018-09-24 21:59] LABS: Allen Test ACCEPTAB; Arterial Base Excess 0.4 mmol/L (-3.0-3); Arterial Blood Gas Oxygen Sat 84.8 mmHG (95.0-100.0); Arterial COHb 0.2 % (0.0-3.0); Arterial Fraction of Oxyhgb 84.2 % (93.0-99.0); Arterial HCO3 24.5 mmol/L (22.0-26.0); Arterial MetHb 0.5 % (0.0-1.5); Arterial pCO2 37.1 mmhg (35-45); MODE VENT - AC; Site Right Radial
[2018-09-25] MEDS ORDERED: NORepinephrine 8MG/250 ML (PMX 250 ML (00:37)
[2018-09-25] MEDS: INSULIN ASPART [NOVOLOG] 3 ML PEN SC ×2 (01:21→05:00)
[2018-09-25 01:24] LABS: AADO2 Arterial 623.8 mmHg (7.0-24.0); Allen Test ACCEPTAB; Arterial Base Excess -3.2 mmol/L (-3.0-3); Arterial Blood Gas Oxygen Sat 83.1 mmHG (95.0-100.0); Arterial COHb 0.3 % (0.0-3.0); Arterial Fraction of Oxyhgb 82.5 % (93.0-99.0); Arterial HCO3 21.3 mmol/L (22.0-26.0); Arterial MetHb 0.4 % (0.0-1.5); Arterial pCO2 35.9 mmhg (35-45); MODE VENT - AC; Site Right Radial
[2018-09-25] MEDS: ACCU-CHEK XX (01:48)
[2018-09-25] MEDS: PIPER-TAZO 3.375 GM IV (PMX) 100 ML IVPB (01:49)
[2018-09-25] MEDS: NORepinephrine 32 MG in DEXTROSE 5% 218 ML IV (01:54)
[2018-09-25] MEDS: PHENYLephrine 80 MG in DEXTROSE 5% 242 ML IV ×2 (02:51→04:42)
[2018-09-25] MEDS: FENTAnyl (DRIP) 1000 mcg/100mL 100 ML IV (02:59)
[2018-09-25] MEDS: MIDAZOLAM (DRIP) 50 mg/50 mL 50 ML IV (03:00)
[2018-09-25 05:16] LABS: Allen Test ACCEPTAB; Arterial Base Excess 0 mmol/L (-3.0-3); Arterial Blood Gas Oxygen Sat 94.5 mmHG (95.0-100.0); Arterial COHb 0.3 % (0.0-3.0); Arterial Fraction of Oxyhgb 93.7 % (93.0-99.0); Arterial HCO3 23.6 mmol/L (22.0-26.0); Arterial MetHb 0.5 % (0.0-1.5); Arterial pCO2 33.8 mmhg (35-45); MODE VENT - PC; Site Left Radial
[2018-09-25 05:25] LABS: ADD MAN DIFF? NO
[2018-09-25 05:33] LABS: ABNORMAL IP MESSAGE 1; BASOPHIL # 0.1 10^3/ul (0.0-0.1); BASOPHILS % 0.5 % (0.0-2.0); EOSINOPHILS # 0.1 10^3/ul (0.0-0.5); EOSINOPHILS % 0.5 % (0.0-7.0); HEMATOCRIT 27.6 % (37.0-47.0); HEMOGLOBIN 8.5 g/dl (12.0-16.0); LYMPHOCYTES # 1.9 10^3/ul (0.8-2.9); LYMPHOCYTES % 7.3 % (15.0-51.0); MEAN CORPUSCULAR HEMOGLOBIN 29.9 pg (29.0-33.0); MEAN CORPUSCULAR HGB CONC 30.8 g/dl (32.0-37.0); MEAN CORPUSCULAR VOLUME 97.2 fl (82.0-101.0); MEAN PLATELET VOLUME 11.3 fl (7.4-10.4); MONOCYTE # 0.7 10^3/ul (0.3-0.9); MONOCYTES % 2.5 % (0.0-11.0); NEUTROPHIL # 23.4 10^3/ul (1.6-7.5); NEUTROPHILS % 87.9 % (39.0-77.0); NUCLEATED RED BLOOD CELLS # 0.2 10^3/ul (0.0-0.0); NUCLEATED RED BLOOD CELLS% 0.9 /100WBC (0.0-0.0); PLATELET COUNT 181 10^3/UL (140-415); RED BLOOD COUNT 2.84 10^6/ul (4.20-5.40); RED CELL DISTRIBUTION WIDTH 20.1 % (11.5-14.5)
[2018-09-25 05:33] LABS: WHITE BLOOD COUNT 26.6 10^3/ul (4.8-10.8)
[2018-09-25 05:45] LABS: POSITIVE DIFF @See below
[2018-09-25 05:47] LABS: INR 3.72; PROTIME 36.8 Sec (11.9-14.9); PT RATIO 2.9
[2018-09-25 05:48] LABS: PARTIAL THROMBOPLASTIN TIME 50.2 Sec (23.0-35.0)
[2018-09-25 06:26] LABS: ALANINE AMINOTRANSFERASE 62 IU/L (13-69); ALBUMIN 2.3 g/dl (3.3-4.9); ALBUMIN/GLOBULIN RATIO 0.95; ALKALINE PHOSPHATASE 143 IU/L (42-121); ANION GAP 13 (5-13); ASPARTATE AMINO TRANSFERASE 86 IU/L (15-46); BILIRUBIN,INDIRECT 0.4 mg/dl (0-1.1); BILIRUBIN,TOTAL 0.4 mg/dl (0.2-1.3); BLOOD UREA NITROGEN 73 mg/dl (7-20); CALCIUM 7.9 mg/dl (8.4-10.2); CARBON DIOXIDE 24 mmol/L (21-31); CHLORIDE 111 mmol/L (97-110); CREATININE 3.82 mg/dl (0.44-1.00); GLUCOSE 136 mg/dl (70-220); POTASSIUM 4.2 mmol/L (3.5-5.1); SODIUM 148 mmol/L (135-144); TOTAL PROTEIN 4.7 g/dl (6.1-8.1)
[2018-09-25] MEDS ORDERED: morphine (DRIP) 100 MG/100 ML 100 ML IV ×2 (08:00→09:30)
[2018-09-25] MEDS ORDERED: LORAZEPAM 2 MG INJ IV (08:00)
[2018-09-25] MEDS ORDERED: ATROPINE SULFATE 1% 5ML SL (08:30)
== END 2018-09-25 09:50 | disposition expired | DRG 853 ==
LOC: ICU 09-03 21:38 → TEL 09-17 03:47 → ICU 09-23 11:17 → E/R 00:12 → TEL 09-02 23:57 → ICU 10:42
PROVIDERS: Internal Medicine
PROC: 4A023N7 Measurement of Cardiac Sampling and Pressure, Left Heart, Percutaneous Approach (ICD-10-PCS; 2018-08-31 10:30)
PROC: B2151ZZ Fluoroscopy of Left Heart using Low Osmolar Contrast (ICD-10-PCS; 2018-08-31 10:30)
PROC: B2111ZZ Fluoroscopy of Multiple Coronary Arteries using Low Osmolar Contrast (ICD-10-PCS; 2018-08-31 10:30)
PROC: 5A09357 Assistance with Respiratory Ventilation, Less than 24 Consecutive Hours, Continuous Positive Airway Pressure (ICD-10-PCS; principal; 2018-08-31 10:42)
PROC: 027034Z Dilation of Coronary Artery, One Artery with Drug-eluting Intraluminal Device, Percutaneous Approach (ICD-10-PCS; 2018-08-31 10:42)
PROC: 027034Z Dilation of Coronary Artery, One Artery with Drug-eluting Intraluminal Device, Percutaneous Approach (ICD-10-PCS; 2018-08-31 10:42)
PROC: B211YZZ Fluoroscopy of Multiple Coronary Arteries using Other Contrast (ICD-10-PCS; 2018-08-31 10:42)
PROC: 4A023N7 Measurement of Cardiac Sampling and Pressure, Left Heart, Percutaneous Approach (ICD-10-PCS; 2018-08-31 10:42)
PROC: 4A023N7 Measurement of Cardiac Sampling and Pressure, Left Heart, Percutaneous Approach (ICD-10-PCS; 2018-08-31 10:42)
PROC: B211YZZ Fluoroscopy of Multiple Coronary Arteries using Other Contrast (ICD-10-PCS; 2018-08-31 10:42)
PROC: 30233N1 Transfusion of Nonautologous Red Blood Cells into Peripheral Vein, Percutaneous Approach (ICD-10-PCS; 2018-08-31 10:42)
PROC: 02HV33Z Insertion of Infusion Device into Superior Vena Cava, Percutaneous Approach (ICD-10-PCS; 2018-08-31 10:42)
PROC: 0BH17EZ Insertion of Endotracheal Airway into Trachea, Via Natural or Artificial Opening (ICD-10-PCS; 2018-08-31 10:42)
DX: A41.9 Sepsis, unspecified organism (principal); I21.3 ST elevation (STEMI) myocardial infarction of unspecified site; J96.00 Acute respiratory failure, unspecified whether with hypoxia or hypercapnia; J18.9 Pneumonia, unspecified organism; I50.23 Acute on chronic systolic (congestive) heart failure; I13.0 Hypertensive heart and chronic kidney disease with heart failure and stage 1 through stage 4 chronic kidney disease, or unspecified chronic kidney disease; I42.9 Cardiomyopathy, unspecified; N17.9 Acute kidney failure, unspecified; G93.40 Encephalopathy, unspecified; E87.0 Hyperosmolality and hypernatremia; K56.609 Unspecified intestinal obstruction, unspecified as to partial versus complete obstruction; N39.0 Urinary tract infection, site not specified; I46.9 Cardiac arrest, cause unspecified; I35.1 Nonrheumatic aortic (valve) insufficiency; F03.90 Unspecified dementia, unspecified severity, without behavioral disturbance, psychotic disturbance, mood disturbance, and anxiety; E78.5 Hyperlipidemia, unspecified; I34.0 Nonrheumatic mitral (valve) insufficiency; I35.0 Nonrheumatic aortic (valve) stenosis; I44.7 Left bundle-branch block, unspecified; I25.10 Atherosclerotic heart disease of native coronary artery without angina pectoris; N18.9 Chronic kidney disease, unspecified; E87.6 Hypokalemia; N18.3 Chronic kidney disease, stage 3 (moderate); I48.91 Unspecified atrial fibrillation; E11.22 Type 2 diabetes mellitus with diabetic chronic kidney disease; Z79.4 Long term (current) use of insulin; Z66 Do not resuscitate
CPT/HCPCS: 31500; 36415; 36430; 36569; 36600; 70450; 71045; 71250; 74018; 74176; 74250; 76705; 76937; 80048; 80053; 80061; 80202; 80307; 81001; 82550; 82553; 82565; 82728; 82803; 82962; 83036; 83540; 83605; 83735; 83880; 84100; 84145; 84443; 84484; 84520; 85025; 85045; 85610; 85730; 86850; 86900; 86901; 86920; 87040-91; 87045; 87075; 87081; 87086; 92950; 93005; 93306; 93312; 93458; 93971; 94003; 94640; 94660; 94664; 94770; 96374; 96375; 97110; 97163; 97530; 99285-25